=== PATIENT | female | born 1955 | race Caucasian/White ===

== ENCOUNTER 2018-12-14 21:47 | Emergency (ER) | payer SELFPAY ==
[~2018-12-14] VITALS: Ht 162.6 cm; Wt 81.8 kg
[2018-12-15] MEDS ORDERED: LIDOCAINE 1% MDV 20ML VIAL IM ONE (00:15)
[2018-12-15] MEDS ORDERED: ADACEL/BOOSTRIX VACCINE (DIPHTH/PERTUSS/ACELL/TETANUS)0.5ML SYR (90715) IM ONE (00:15)
[2018-12-15] MEDS ORDERED: KEFL500C17 PO (01:26)
[2018-12-15] MEDS ORDERED: LIDOCAINE 1% SDV 5 ML VIAL DILUENT ONE (01:30)
[2018-12-15] MEDS ORDERED: cefTRIAXone SOD 1 GM VIAL (J0696) IM ONE (01:30)
[2018-12-15] MEDS ORDERED: CEPHALEXIN 500 MG CAP PO ONE (01:30)
[2018-12-15 01:49] VITALS: BP 170/98
[2018-12-15] MEDS ORDERED: TRAM50TA2 PO (01:54)
[2018-12-15] MEDS ORDERED: traMADol 50 MG TAB PO ONE (02:00)
--- NOTE | 2018-12-15 15:01 | REP ---
Clinical: Trauma. Dog bite. Technique: AP, lateral, bilateral oblique views right hand. Findings: Lateral view best demonstrates soft tissue swelling. The osseous structures and joint spaces are intact and normal. There is no evidence for acute fracture or dislocation. No subcutaneous emphysema or radiodense foreign body. Impression: Soft tissue swelling. No acute fracture or dislocation. No subcutaneous emphysema or radiodense foreign body. Electronically Signed by Brennan Harding MD 12/15/2018 07:18 A
[2018-12-16] MEDS ORDERED: CEPH500T PO (20:05)
[2018-12-16] MEDS ORDERED: TRAM50TA2 PO (20:05)
== END 2018-12-15 02:01 | disposition home or self-care (01) ==
LOC: M ED 21:47
DX: S61.411A Laceration without foreign body of right hand, initial encounter (principal); S61.431A Puncture wound without foreign body of right hand, initial encounter; W54.0XXA Bitten by dog, initial encounter; Y92.098 Other place in other non-institutional residence as the place of occurrence of the external cause; F17.200 Nicotine dependence, unspecified, uncomplicated
CPT/HCPCS: 12001; 73130; 90471; 90715; 96372; 99284; J0696

== ENCOUNTER 2018-12-16 16:52 | Inpatient (IN) | payer SELFPAY ==
[~2018-12-16] VITALS: Ht 162.6 cm; Wt 82.8 kg
[~2018-12-16 16:52] MED LIST: KEFL500C17 PO; TRAM50TA2 PO
[2018-12-16] MEDS ORDERED: PIPERACILLIN/TAZOBACTAM SOD 3.375 GM in D5W MINI-BAG PLUS 50 ML IV ONE (18:00)
[2018-12-16 18:04] LABS: BASO % 0.1 % (0.0-1.0); EOS # 0.1 10^3/uL (0.0-0.50); HEMATOCRIT 42.7 % (36.0-47.0); HEMOGLOBIN 14.2 g/dl (12.0-15.5); LYMPH % 19.8 % (24.0-44.0); MEAN CORPUSCULAR HEMOGLOBIN 31.4 pg (27.0-33.0); MEAN CORPUSCULAR HGB CONC 33.3 g/dl (32.0-36.5); MEAN CORPUSCULAR VOLUME 94.5 fl (80.0-96.0); MONO # 0.8 10^3/uL (0.0-0.8); NEUTROPHILS % 70.8 % (36.0-66.0); PLATELET COUNT, AUTOMATED 237 10^3/uL (150-450); RED BLOOD COUNT 4.52 10^6/uL (4.00-5.40); WHITE BLOOD COUNT 9.9 10^3/uL (4.0-10.0)
[2018-12-16 18:23] LABS: BLOOD UREA NITROGEN 9 MG/DL (7-18); C REACTIVE PROTEIN QUANTITATIV 9.59 MG/DL (0.00-0.30); CALCIUM LEVEL 8.9 MG/DL (8.8-10.2); CARBON DIOXIDE LEVEL 28 MEQ/L (21-32); CHLORIDE LEVEL 107 MEQ/L (98-107); CREATININE FOR GFR 0.68 MG/DL (0.55-1.30); GLOMERULAR FILTRATION RATE > 60.0 (>45); GLUCOSE, FASTING 99 MG/DL (70-100); POTASSIUM SERUM 3.9 MEQ/L (3.5-5.1); SODIUM LEVEL 143 MEQ/L (136-145)
[2018-12-16] MEDS ORDERED: MORPHINE 4 MG/ML 1ML VIAL/SYRINGE (J2270) IV ONE (19:30)
[2018-12-16 19:58] LABS: ERYTHROCYTE SEDIMENTATION RATE 52 mm/hr (0-30)
[2018-12-16] MEDS ORDERED: CEPH500T PO (20:05)
[2018-12-16] MEDS ORDERED: TRAM50TA2 PO (20:05)
[2018-12-16] MEDS ORDERED: MORPHINE 4 MG/ML 1ML VIAL/SYRINGE (J2270) IV PRN (20:45)
[2018-12-16] MEDS ORDERED: PERCOCET 5MG/325MG TAB PO PRN ×2 (20:45)
[2018-12-16] MEDS: ENOXAPARIN 40 MG/0.4 ML SYRINGE (J1650) SC SCH ×2 (21:00→22:55)
--- NOTE | 2018-12-16 21:19 | HPEPDOC ---
[facility] Medical History & Physical Date of Admission Dec 16, 2018 Date of Service: Dec 16, 2018 History and Physical PCP: None, secondary to a lack of insurance in general good health CHIEF COMPLAINT: Dogbite HISTORY OF PRESENT ILLNESS: Patient is a 63-year-old female who is right-hand dominant who did have a dog bite on her right hand. She knows that the dog had received all of its shots, she was seen in the emergency room at that time she was discharged home on Keflex as well as received a tetanus shot and an x-ray as well as sutures placed. Over the last 48 hours the swelling pain and discharge worsened prompting her to re-presented to the emergency room today. She denies fevers chills otherwise patient denies weight loss, hair loss, headache, visual changes, chest pain, shortness of breath, cough, nausea, vomiting, diarrhea, abdominal pain, muscle aches, worsening arthritis, change in mood PAST MEDICAL HISTORY: 1. Nicotine dependence. HOME MEDICATIONS: Please see below. ALLERGIES: Please see below PAST SURGICAL HISTORY: 1. . 2. Carpal tunnel release. 3. Tubal ligation. SOCIAL HISTORY: Lives with: Alone, Employment: [employer], Tobacco use: 40 pack year active smoker. ETOH: 2-3 drinks per day, Illicit drug use: Denies, Tattoos done unprofessionally: Denies, CODE STATUS: Fall code FAMILY HISTORY:Reviewed and noncontributory REVIEW OF SYSTEMS: 10 systems reviewed and negative other than HPI PHYSICAL EXAMINATION: VITAL SIGNS: Temperature 97.7, pulse 105, respiratory rate 16, blood pressure 201/88, pulse oximetry 95 % on room air. GENERAL: Pleasant elderly femalesitting up in bed awake alert oriented speaking in complete sentences no acute distress HEENT: Moist mucous membranes no elevation and CVP CARDIOVASCULAR: S1 S2 regular no additional heart sounds appreciated. She is not tachycardic at the time of my exam RESPIRATORY: Clear to auscultation bilaterally. ABDOMINAL: Bowel sounds present abdomen soft and nontender, mildly obese EXTREMITIES: No clubbing cyanosis or edema in lower extremities. Right upper extremity does appear to have grossly erythematous edematous tender swelling of the right lateral aspect of the hand at the dorsum. She has sutures in place serous discharge is noted significant decrease range of motion in the second and third digit NEUROLOGICAL: Spontaneously moves all 4 extremities cranial 2 through 12 grossly intact no gross focal deficits appreciated PSYCHOLOGICAL: Appropriate LABORATORY DATA: See below. MICROBIOLOGY: Please see below. IMAGING: Hand x-ray from 12/15/2018:Soft tissue swelling. No acute fracture or dislocation. No subcutaneous emphysema or radiodense foreign body. ASSESSMENT & PLAN: This is a 63-year-old female with cellulitis of the right hand secondary to a dog bite. PROBLEMS: 1. Cellulitis of the right hand secondary to a dog bite: Given the impressive nature of her injury and infection I've asked emergency room her primary provider to discontinue her sutures allow for adequate drainage from the wound. I spoke to Dr. Olivas of orthopedic surgery who is present at bedside to evaluate the wound is recommended not checking an MRI of the hand at this time to see if she improves with antibiotics consider completing as tomorrow morning if she fails to have increased range of motion of improvement in her symptoms. I'll continue her on Zosyn and comes time for potential discharge would recommend A ugmentin or doxycycline and would avoid Keflex. Multivitamin with pain control orthopedic surgical follow-up outpatient consultation 2. Tobacco abuse: Cessation counseling provided 3. Alcohol use: No evidence of significant abuse monitor for any withdrawal symptoms 4.Medical nonadherence: No PCP, patient lacks insurance. Thus consult placed DVT PROPHYLAXIS: [facility] Vital Signs Vital Signs Date Time Temp Pulse Resp B/P (MAP) Pulse Ox O2 Delivery O2 Flow Rate FiO2 12/16/18 19:54 16 12/16/18 19:53 182/88 (119) 12/16/18 19:31 83 95 Room Air 12/16/18 16:52 97.7 Laboratory Data Labs 24H Laboratory Tests 2 12/16/18 17:44: Immature Granulocyte % (Auto) 0.3, White Blood Count 9.9, Red Blood Count 4.52, Hemoglobin 14.2, Hematocrit 42.7, Mean Corpuscular Volume 94.5, Mean Corpuscular Hemoglobin 31.4, Mean Corpuscular Hemoglobin Concent 33.3, Red Cell Distribution Width 13.7, Platelet Count 237, Neutrophils (%) (Auto) 70.8H, Lymphocytes (%) (Auto) 19.8L, Monocytes (%) (Auto) 8.0H, Eosinophils (%) (Auto) 1.0, Basophils (%) (Auto) 0.1, Neutrophils # (Auto) 7.0, Lymphocytes # (Auto) 2.0, Monocytes # (Auto) 0.8, Eosinophils # (Auto) 0.1, Basophils # (Auto) 0.0, Nucleated Red Blood Cells % (auto) 0.0, Erythrocyte Sedimentation Rate 52H, Anion Gap 8, Glomerular Filtration Rate > 60.0, Lactic Acid Level 0.8, Blood Urea Nitrogen 9, Creatinine 0.68, Sodium Level 143, Potassium Level 3.9, Chloride Level 107, Carbon Dioxide Level 28, Calcium Level 8.9, C-Reactive Protein, Quantitative 9.59H CBC/BMP Laboratory Tests 12/16/18 17:44 Red Blood Count 4.52, Mean Corpuscular Volume 94.5, Mean Corpuscular Hemoglobin 31.4, Mean Corpuscular Hemoglobin Concent 33.3, Red Cell Distribution Width 13.7, Neutrophils (%) (Auto) 70.8 H, Lymphocytes (%) (Auto) 19.8 L, Monocytes (%) (Auto) 8.0 H, Eosinophils (%) (Auto) 1.0, Basophils (%) (Auto) 0.1, Neutrophils # (Auto) 7.0, Lymphocytes # (Auto) 2.0, Monocytes # (Auto) 0.8, Eosinophils # (Auto) 0.1, Basophils # (Auto) 0.0, Calcium Level 8.9 Microbiology Microbiology 12/16/18 Blood Culture, Received Pending 12/16/18 Blood Culture, Received Pending 12/16/18 Gram Stain, Received Pending 12/16/18 Wound Culture, Received Pending Home Medications Scheduled Cephalexin (Cephalexin) 500 Mg Tablet, 500 MG PO Q12H Scheduled PRN Tramadol HCl (Tramadol HCl) 50 Mg Tablet, 50 MG PO Q6HP PRN for pain Allergies Coded Allergies: No Known Allergies (Unverified , 12/14/18) A-FIB/CHADSVASC A-FIB History Current/History of A-Fib/PAF?: No DANIEL HICKMAN MD Dec 16, 2018 21:19
[2018-12-16] MEDS: PIPERACILLIN/TAZOBACTAM SOD 3.375 GM in D5W MINI-BAG PLUS 50 ML IV SCH (23:35)
[2018-12-16 23:59] VITALS: BP 186/79
[2018-12-17] MEDS: PIPERACILLIN/TAZOBACTAM SOD 3.375 GM in D5W MINI-BAG PLUS 50 ML IV SCH ×3 (05:53→17:20)
[2018-12-17 05:57] LABS: MEAN CORPUSCULAR HEMOGLOBIN 30.7 pg (27.0-33.0); MEAN CORPUSCULAR HGB CONC 32.5 g/dl (32.0-36.5); MEAN CORPUSCULAR VOLUME 94.6 fl (80.0-96.0); PLATELET COUNT, AUTOMATED 229 10^3/uL (150-450); RED BLOOD COUNT 4.23 10^6/uL (4.00-5.40); WHITE BLOOD COUNT 8.7 10^3/uL (4.0-10.0)
[2018-12-17 06:23] LABS: BLOOD UREA NITROGEN 7 MG/DL (7-18); CALCIUM LEVEL 8.9 MG/DL (8.8-10.2); CARBON DIOXIDE LEVEL 27 MEQ/L (21-32); CHLORIDE LEVEL 109 MEQ/L (98-107); GLOMERULAR FILTRATION RATE > 60.0 (>45); GLUCOSE, FASTING 103 MG/DL (70-100); POTASSIUM SERUM 3.7 MEQ/L (3.5-5.1); SODIUM LEVEL 141 MEQ/L (136-145)
[2018-12-17 08:00] VITALS: BP 160/66
[2018-12-17 15:00] VITALS: BP 143/68
--- NOTE | 2018-12-17 16:25 | IPNPDOC ---
Subjective Date Seen The patient was seen on 12/17/18. Subjective Chief Complaint/HPI 63f with no medical hx present with infected wound from dog bite. pt reports hand is much improved since coming to the hospital a full 10 pt ROS was performed and was negative with the exception of what is documented above Objective Physical Examination General Exam: Positive: Alert, No Acute Distress Eye Exam: Positive: PERRLA, Conjunctiva & lids normal, EOMI; Negative: Sclera icteric ENT Exam: Positive: Atraumatic, Mucous membr. moist/pink, Pharynx Normal Neck Exam: Positive: Supple; Negative: JVD, thyromegaly Chest Exam: Positive: Clear to auscultation, Normal air movement Heart Exam: Positive: Rate Normal, Regular Rhythm, Normal S1, Normal S2; Negative: Murmurs, Rubs Abdomen Exam: Positive: Normal bowel sounds, Soft; Negative: Tenderness, Hepatospenomegaly Extremity Exam: Positive: Normal pulses; Negative: Clubbing, Cyanosis, Edema Skin Exam: Positive: Nl turgor and temperature; Negative: Rash, Breakdown Neuro Exam: Positive: Normal Gait, Normal Speech, Cranial Nerves 3-12 NL, Reflexes 2+ Psych Exam: Positive: Mental status NL, Mood NL, Oriented x 3 Other physical findings rt hand with wound from dog bite and surrounding cellulitis Assessment /Plan Assessment 63f with infected dog bite continue zosyn infection rapidly improving will consider switching to augmentin or FQ soon dc anticipated in next day or two continue pain control Plan/VTE VTE Prophylaxis Ordered?: Yes VS, I&O, 24H, Fishbone Vital Signs/I&O Vital Signs Date Time Temp Pulse Resp B/P (MAP) Pulse Ox O2 Delivery O2 Flow Rate FiO2 12/17/18 15:00 98.3 87 16 143/68 (93) 93 12/16/18 19:31 Room Air I&O- Last 24 Hours up to 6 AM 12/17/18 06:00 Intake Total 50 ml Balance 50 ml Laboratory Data 24H LABS Laboratory Tests 2 12/16/18 17:44: Immature Granulocyte % (Auto) 0.3, White Blood Count 9.9, Red Blood Count 4.52, Hemoglobin 14.2, Hematocrit 42.7, Mean Corpuscular Volume 94.5, Mean Corpuscular Hemoglobin 31.4, Mean Corpuscular Hemoglobin Concent 33.3, Red Cell Distribution Width 13.7, Platelet Count 237, Neutrophils (%) (Auto) 70.8H, Lymphocytes (%) (Auto) 19.8L, Monocytes (%) (Auto) 8.0H, Eosinophils (%) (Auto) 1.0, Basophils (%) (Auto) 0.1, Neutrophils # (Auto) 7.0, Lymphocytes # (Auto) 2.0, Monocytes # (Auto) 0.8, Eosinophils # (Auto) 0.1, Basophils # (Auto) 0.0, Nucleated Red Blood Cells % (auto) 0.0, Erythrocyte Sedimentation Rate 52H, Anion Gap 8, Glomerular Filtration Rate > 60.0, Lactic Acid Level 0.8, Blood Urea Nitrogen 9, Creatinine 0.68, Sodium Level 143, Potassium Level 3.9, Chloride Level 107, Carbon Dioxide Level 28, Calcium Level 8.9, C-Reactive Protein, Quantitative 9.59H 12/17/18 05:12: Nucleated Red Blood Cells % (auto) 0.0, Anion Gap 5L, Glomerular Filtration Rate > 60.0, Blood Urea Nitrogen 7, Creatinine 0.80, Sodium Level 141, Potassium Level 3.7, Chloride Level 109H, Carbon Dioxide Level 27, Calcium Level 8.9, Procalcitonin 0.04 CBC/BMP Laboratory Tests 12/16/18 17:44 Red Blood Count 4.52, Mean Corpuscular Volume 94.5, Mean Corpuscular Hemoglobin 31.4, Mean Corpuscular Hemoglobin Concent 33.3, Red Cell Distribution Width 13.7, Neutrophils (%) (Auto) 70.8 H, Lymphocytes (%) (Auto) 19.8 L, Monocytes (%) (Auto) 8.0 H, Eosinophils (%) (Auto) 1.0, Basophils (%) (Auto) 0.1, Neutrophils # (Auto) 7.0, Lymphocytes # (Auto) 2.0, Monocytes # (Auto) 0.8, Eosinophils # (Auto) 0.1, Basophils # (Auto) 0.0, Calcium Level 8.9 12/17/18 05:12 Red Blood Count 4.23, Mean Corpuscular Volume 94.6, Mean Corpuscular Hemoglobin 30.7, Mean Corpuscular Hemoglobin Concent 32.5, Red Cell Distribution Width 13.7, Calcium Level 8.9 Microbiology Microbiology 12/16/18 Blood Culture, Received Pending 12/16/18 Blood Culture, Received Pending 12/16/18 Gram Stain - Final, Resulted 12/16/18 Wound Culture, Resulted Pending HEVER BATISTA MD Dec 17, 2018 16:25
[2018-12-17] MEDS: ENOXAPARIN 40 MG/0.4 ML SYRINGE (J1650) SC SCH (20:00)
[2018-12-17 21:36] VITALS: BP 171/80
[2018-12-17 22:00] VITALS: BP 168/90
[2018-12-18] VITALS (7 sets, daily range): BP systolic 162–204; BP diastolic 81–102
[2018-12-18] MEDS: PIPERACILLIN/TAZOBACTAM SOD 3.375 GM in D5W MINI-BAG PLUS 50 ML IV SCH ×5 (00:10→23:53)
[2018-12-18 06:06] LABS: HEMATOCRIT 40.5 % (36.0-47.0); HEMOGLOBIN 13.2 g/dl (12.0-15.5); MEAN CORPUSCULAR HEMOGLOBIN 31.1 pg (27.0-33.0); MEAN CORPUSCULAR HGB CONC 32.6 g/dl (32.0-36.5); MEAN CORPUSCULAR VOLUME 95.5 fl (80.0-96.0); PLATELET COUNT, AUTOMATED 218 10^3/uL (150-450); RED BLOOD COUNT 4.24 10^6/uL (4.00-5.40); WHITE BLOOD COUNT 7.2 10^3/uL (4.0-10.0)
[2018-12-18 06:30] LABS: BLOOD UREA NITROGEN 10 MG/DL (7-18); CALCIUM LEVEL 8.5 MG/DL (8.8-10.2); CARBON DIOXIDE LEVEL 26 MEQ/L (21-32); CHLORIDE LEVEL 109 MEQ/L (98-107); CREATININE FOR GFR 0.74 MG/DL (0.55-1.30); GLOMERULAR FILTRATION RATE > 60.0 (>45); GLUCOSE, FASTING 112 MG/DL (70-100); POTASSIUM SERUM 3.8 MEQ/L (3.5-5.1); SODIUM LEVEL 143 MEQ/L (136-145)
--- NOTE | 2018-12-18 17:06 | IPNPDOC ---
Subjective Date Seen The patient was seen on 12/18/18. Subjective Chief Complaint/HPI 63f with no medical hx present with infected wound from dog bite. has nearly full range of motion back, some drainage from wounds, no fevers a full 10 pt ROS was performed and was negative with the exception of what is documented above Objective Physical Examination General Exam: Positive: Alert, No Acute Distress Eye Exam: Positive: PERRLA, Conjunctiva & lids normal, EOMI; Negative: Sclera icteric ENT Exam: Positive: Atraumatic, Mucous membr. moist/pink, Pharynx Normal Neck Exam: Positive: Supple; Negative: JVD, thyromegaly Chest Exam: Positive: Clear to auscultation, Normal air movement Heart Exam: Positive: Rate Normal, Regular Rhythm, Normal S1, Normal S2; Negative: Murmurs, Rubs Abdomen Exam: Positive: Normal bowel sounds, Soft; Negative: Tenderness, Hepatospenomegaly Extremity Exam: Positive: Normal pulses; Negative: Clubbing, Cyanosis, Edema Skin Exam: Positive: Nl turgor and temperature; Negative: Rash, Breakdown Neuro Exam: Positive: Normal Gait, Normal Speech, Cranial Nerves 3-12 NL, Reflexes 2+ Psych Exam: Positive: Mental status NL, Mood NL, Oriented x 3 Assessment /Plan Assessment 63f with infected dog bite continue zosyn improving however I'm concerned that it is not draining enough and looking more swollen ortho following observe one more day then if improving would dc on augmentin continue pain control Plan/VTE VTE Prophylaxis Ordered?: Yes VS, I&O, 24H, Fishbone Vital Signs/I&O Vital Signs Date Time Temp Pulse Resp B/P (MAP) Pulse Ox O2 Delivery O2 Flow Rate FiO2 12/18/18 14:08 162/84 (110) 12/18/18 13:58 97.5 74 95 12/18/18 05:57 14 12/16/18 19:31 Room Air I&O- Last 24 Hours up to 6 AM 12/18/18 06:00 Intake Total 2100 ml Output Total 2200 ml Balance -100 ml Laboratory Data 24H LABS Laboratory Tests 2 12/18/18 05:21: Nucleated Red Blood Cells % (auto) 0.0, Anion Gap 8, Glomerular Filtration Rate > 60.0, Blood Urea Nitrogen 10, Creatinine 0.74, Sodium Level 143, Potassium Level 3.8, Chloride Level 109H, Carbon Dioxide Level 26, Calcium Level 8.5L CBC/BMP Laboratory Tests 12/18/18 05:21 Red Blood Count 4.24, Mean Corpuscular Volume 95.5, Mean Corpuscular Hemoglobin 31.1, Mean Corpuscular Hemoglobin Concent 32.6, Red Cell Distribution Width 13.5, Calcium Level 8.5 L Microbiology Microbiology 12/16/18 Blood Culture - Preliminary, Resulted No growth after 24 hours . All specim... 12/16/18 Blood Culture - Preliminary, Resulted No growth after 24 hours . All specim... 12/16/18 Gram Stain - Final, Complete 12/16/18 Wound Culture - Final, Complete HEVER BATISTA MD Dec 18, 2018 17:06
--- NOTE | 2018-12-18 18:03 | CR ---
DATE OF CONSULTATION: 12/16/2018 I was asked by Dr. Newsome to evaluate dog bite, right upper extremity. CHIEF COMPLAINT: Dog bite, right upper extremity. HISTORY: She was bitten by her own dog. Injury happened several days prior, was washed out in the emergency room (ER) by a physician sales assistant institutional sales, placed on Keflex, sent home comes, back in two days later with increasing pain, swelling and serous drainage from the dorsum of the right upper extremity. Her health records were reviewed and medical record and chart were reviewed. CLINICAL EXAM: Alert, cooperative. Mood and affect are appropriate. RIGHT UPPER EXTREMITY: Mild erythema, moderate edema. Pain with flexion and extension of the digits. Swelling, exclusively on dorsum of the hand. No streaking up the arm. IMPRESSION: Status post dog bite two days ago. RECOMMENDATIONS: 1. Admit. 2. Dressing changes. 3. Intravenous antibiotics, broad-spectrum that would be appropriate to cover an infected bite wound. 4. Potential further evaluation with an MRI if she does not rapidly improved on the appropriate antibiotics. 5. Consideration for infectious disease consult also appropriate.
[2018-12-18] MEDS: ENOXAPARIN 40 MG/0.4 ML SYRINGE (J1650) SC SCH (21:34)
[2018-12-18] MEDS ORDERED: NITROGLYCERIN 2% OINT 1 GM *U/D* PKT TOP ONE (23:30)
[2018-12-18] MEDS: LISINOPRIL 5 MG TAB PO SCH (23:52)
[2018-12-19] MEDS ORDERED: NITROGLYCERIN 2% OINT 1 GM *U/D* PKT TOP ONE (00:15)
[2018-12-19 01:44] VITALS: BP 186/94
[2018-12-19] MEDS ORDERED: cloNIDine 0.1 MG TAB PO ONE (02:30)
[2018-12-19 04:50] VITALS: BP 158/74
[2018-12-19 05:40] VITALS: BP 140/76
[2018-12-19] MEDS: PIPERACILLIN/TAZOBACTAM SOD 3.375 GM in D5W MINI-BAG PLUS 50 ML IV SCH ×2 (05:42→12:00)
[2018-12-19 05:47] LABS: HEMATOCRIT 35.9 % (36.0-47.0); HEMOGLOBIN 11.8 g/dl (12.0-15.5); MEAN CORPUSCULAR HEMOGLOBIN 30.2 pg (27.0-33.0); MEAN CORPUSCULAR HGB CONC 32.9 g/dl (32.0-36.5); MEAN CORPUSCULAR VOLUME 91.8 fl (80.0-96.0); PLATELET COUNT, AUTOMATED 236 10^3/uL (150-450); RED BLOOD COUNT 3.91 10^6/uL (4.00-5.40)
[2018-12-19 07:13] LABS: BLOOD UREA NITROGEN 8 MG/DL (7-18); C REACTIVE PROTEIN QUANTITATIV 2.15 MG/DL (0.00-0.30); CALCIUM LEVEL 8.4 MG/DL (8.8-10.2); CARBON DIOXIDE LEVEL 26 MEQ/L (21-32); CHLORIDE LEVEL 111 MEQ/L (98-107); CREATININE FOR GFR 0.78 MG/DL (0.55-1.30); GLOMERULAR FILTRATION RATE > 60.0 (>45); GLUCOSE, FASTING 112 MG/DL (70-100); POTASSIUM SERUM 3.5 MEQ/L (3.5-5.1); SODIUM LEVEL 144 MEQ/L (136-145)
[2018-12-19 08:57] VITALS: BP 142/78
[2018-12-19] MEDS: LISINOPRIL 5 MG TAB PO SCH (08:57)
[2018-12-19] MEDS ORDERED: AUGM875T28 PO (10:27)
[2018-12-19] MEDS ORDERED: LISI10TA4 PO (10:28)
[2018-12-19] MEDS ORDERED: ACET1TAB55 PO (10:31)
--- NOTE | 2018-12-21 22:19 | DS.PDOC ---
Discharge Summary General Date of Admission Dec 16, 2018 at 20:36 Date of Discharge December 19, 2018 Attending Physician: SHARAD DUMAS MD Specialist/Consultants Involve: Ruslan Olivas MD Discharge Summary PROCEDURES PERFORMED DURING STAY: [None]. ADMITTING DIAGNOSES: 1. Infected dog bite 2. Cellulitis of RUE DISCHARGE DIAGNOSES: 1.As Above COMPLICATIONS/CHIEF COMPLAINT: Cellulitis Of Right Upper Extremity. HISTORY OF PRESENT ILLNESS (As per H&P): Patient is a 63-year-old female who is right-hand dominant who did have a dog bite on her right hand. She knows that the dog had received all of its shots, she was seen in the emergency room at that time she was discharged home on Keflex as well as received a tetanus shot and an x-ray as well as sutures placed. Over the last 48 hours the swelling pain and discharge worsened prompting her to re-presented to the emergency room today. She denies fevers chills otherwise patient denies weight loss, hair loss, headache, visual changes, chest pain, shortness of breath, cough, nausea, vomiting, diarrhea, abdominal pain, muscle aches, worsening arthritis, change in mood HOSPITAL COURSE: Pt was placed on IV Abx ( zosyn), Ortho was consulted, Pt clinically improved, had nearly full range of motion . Abx was switched to PO Augmentin. Was DC home. DISCHARGE MEDICATIONS: Please see below. ALLERGIES: Please see below. PHYSICAL EXAMINATION ON DISCHARGE: VITAL SIGNS: Please see below. General Exam: Positive: Alert, No Acute Distress Eye Exam: Positive: PERRLA, Conjunctiva & lids normal, EOMI; Negative: Sclera icteric ENT Exam: Positive: Atraumatic, Mucous membr. moist/pink, Pharynx Normal Neck Exam: Positive: Supple; Negative: JVD, thyromegaly Chest Exam: Positive: Clear to auscultation, Normal air movement Heart Exam: Positive: Rate Normal, Regular Rhythm, Normal S1, Normal S2; Negative: Murmurs, Rubs Abdomen Exam: Positive: Normal bowel sounds, Soft; Negative: Tenderness, Hepatospenomegaly Extremity Exam: Positive: Normal pulses; Negative: Clubbing, Cyanosis, Edema Skin Exam: Positive: Nl turgor and temperature; Negative: Rash, Breakdown Neuro Exam: Positive: Normal Gait, Normal Speech, Cranial Nerves 3-12 NL, Reflexes 2+ Psych Exam: Positive: Mental status NL, Mood NL, Oriented x 3 LABORATORY DATA: Please see below. IMAGING: Right Hand Xray: Impression: Soft tissue swelling. No acute fracture or dislocation. No subcutaneous emphysema or radiodense foreign body. PROGNOSIS:Good ACTIVITY: As tolerated. DIET: As tolerated DISCHARGE PLAN: Cont. Abx DISPOSITION: Home, Self-Care. DISCHARGE INSTRUCTIONS: 1. Hand Hygiene ITEMS TO FOLLOWUP ON ON OUTPATIENT: 1. Follow with PCP 2. Return to ED with any warninhg sign. DISCHARGE CONDITION: Stable, afebrile, improved with ABx. TIME SPENT ON DISCHARGE: Greater than 20 minutes. Vital Signs/I&Os Vital Signs Date Time Temp Pulse Resp B/P (MAP) Pulse Ox O2 Delivery O2 Flow Rate FiO2 12/19/18 08:57 142/78 12/19/18 05:40 97.9 67 12 91 12/16/18 19:31 Room Air Laboratory Data Labs 24H Orders Provider Order Sheet (12/20/18 13:08) Microbiology Microbiology 12/16/18 Blood Culture - Final, Complete NO GROWTH AFTER 5 DAYS 12/16/18 Blood Culture - Final, Complete NO GROWTH AFTER 5 DAYS 12/16/18 Gram Stain - Final, Complete 12/16/18 Wound Culture - Final, Complete Discharge Medications Scheduled Amoxicillin/Potassium Clav (Augmentin 875-125 Tablet) 1 Each Tablet, 1 TAB PO BID Lisinopril (Lisinopril) 10 Mg Tablet, 10 MG PO DAILY Scheduled PRN Acetaminophen (Acetaminophen) 325 Mg Tablet, 325 MG PO Q4-6HP PRN for pain or fever Allergies Coded Allergies: No Known Allergies (Unverified , 12/14/18) SHARAD DUMAS MD Dec 21, 2018 21:58
== END 2018-12-19 12:45 | disposition home or self-care (01) | DRG 384 ==
LOC: M ED 16:52 → M ED INP 20:36 → M PCU 23:02 → M MS5PR 12-17 14:27
PROVIDERS: ADMIT Internal Medicine; ATTEND Hospitalist
DX: S61.451A Open bite of right hand, initial encounter (principal); L03.113 Cellulitis of right upper limb; F17.200 Nicotine dependence, unspecified, uncomplicated; W54.0XXA Bitten by dog, initial encounter; Y92.89 Other specified places as the place of occurrence of the external cause

== ENCOUNTER → 2018-12-25 | Outpatient (REF) | payer OTHER ==
[~2018-12-25] MED LIST changes: +ACET1TAB55 PO; +AUGM875T28 PO; +CEPH500T PO; +LISI10TA4 PO
[2018-12-25 15:59] LABS: APPEARANCE, URINE CLEAR (CLEAR); BACTERIA, URINE AUTO NEGATIVE (NEGATIVE); BILIRUBIN, URINE AUTO NEGATIVE (NEGATIVE); BLOOD, URINE BLOOD 1+ (NEGATIVE); COLOR, URINE STRAW (YELLOW); GLUCOSE, URINE (UA) AUTO NEGATIVE (NEGATIVE); KETONE, URINE AUTO NEGATIVE (NEGATIVE); LEUKOCYTE ESTERASE, URINE AUTO TRACE (NEGATIVE); NITRITE, URINE AUTO NEGATIVE (NEGATIVE); PROTEIN, URINE AUTO NEGATIVE (NEGATIVE); RBC, URINE AUTO 5 /HPF (0-3); SPECIFIC GRAVITY URINE AUTO 1.003 (1.002-1.035); SQUAMOUS EPITHELIAL CELL UR AU 1 /HPF (0-6); UROBILINOGEN, URINE AUTO 0.2 mg/dL (0.0-2.0); WBC, URINE AUTO 5 /HPF (0-3)
== END ==
LOC: M SFHCPLAZ 14:00
PROVIDERS: ATTEND Family Medicine
DX: I10 Essential (primary) hypertension (principal)

== ENCOUNTER → 2019-01-23 | Outpatient (REF) | payer OTHER, SELFPAY ==
[2019-01-23 12:53] LABS: APPEARANCE, URINE CLEAR (CLEAR); BACTERIA, URINE AUTO 1+ (NEGATIVE); BILIRUBIN, URINE AUTO NEGATIVE (NEGATIVE); BLOOD, URINE BLOOD 1+ (NEGATIVE); COLOR, URINE STRAW (YELLOW); GLUCOSE, URINE (UA) AUTO NEGATIVE (NEGATIVE); KETONE, URINE AUTO NEGATIVE (NEGATIVE); LEUKOCYTE ESTERASE, URINE AUTO TRACE (NEGATIVE); NITRITE, URINE AUTO NEGATIVE (NEGATIVE); PROTEIN, URINE AUTO NEGATIVE (NEGATIVE); RBC, URINE AUTO 2 /HPF (0-3); SPECIFIC GRAVITY URINE AUTO 1.003 (1.002-1.035); SQUAMOUS EPITHELIAL CELL UR AU 3 /HPF (0-6); UROBILINOGEN, URINE AUTO 0.2 mg/dL (0.0-2.0); WBC, URINE AUTO 8 /HPF (0-3)
[2019-01-23 12:59] LABS: BLOOD UREA NITROGEN 7 MG/DL (7-18); CALCIUM LEVEL 9.4 MG/DL (8.8-10.2); CARBON DIOXIDE LEVEL 29 MEQ/L (21-32); CHLORIDE LEVEL 108 MEQ/L (98-107); CHOLESTEROL LEVEL 215 MG/DL (<200); CREATININE FOR GFR 0.77 MG/DL (0.55-1.30); GLOMERULAR FILTRATION RATE > 60.0 (>45); GLUCOSE, FASTING 95 MG/DL (70-100); HDL CHOLESTEROL 37 MG/DL (>40); LDL CHOLESTEROL 134 MG/DL (<100); NON-HDL-C 178 MG/DL; POTASSIUM SERUM 4.4 MEQ/L (3.5-5.1); SODIUM LEVEL 143 MEQ/L (136-145); TRIGLYCERIDES LEVEL 222 MG/DL (<150)
[2019-01-23 13:32] LABS: HEMOGLOBIN A1c 6.2 %
== END ==
LOC: M SFHCPLAZ 09:14
PROVIDERS: ATTEND Family Medicine
DX: Z13.1 Encounter for screening for diabetes mellitus (principal); Z13.220 Encounter for screening for lipoid disorders; I10 Essential (primary) hypertension

== ENCOUNTER → 2019-06-24 | Outpatient (REF) | payer BC ==
[2019-06-24 12:58] LABS: HEMOGLOBIN A1c 6.1 %
== END ==
LOC: M SFHCPLAZ 10:39
PROVIDERS: ATTEND Internal Medicine
DX: R73.03 Prediabetes (principal)

== ENCOUNTER → 2019-07-02 | Outpatient (CLI) | payer BC ==
--- NOTE | 2019-07-03 05:29 | REP ---
Clinical: Amaurosis fugax . Technique: Melo scale and color Doppler evaluation using linear high frequency transducer Findings: Two-dimensional melo scale and color images demonstrate focal noncalcified atheromatous plaquing in the bilateral internal carotid arteries (right greater than left). Otherwise normal bilateral arterial lumen with laminar flow and no appreciable narrowing. Color Doppler interrogation demonstrates normal arterial wave patterns and velocities with no significant spectral broadening. Normal flow direction is appreciated in the bilateral vertebral arteries. RIGHT (cm/s) LEFT (cm/s) ICA peak systolic velocity 415 212 ICA diastolic velocity 151 47 ECA peak systolic velocity 116 136 CCA peak systolic velocity 90 104 ICA/CCA ratio 4.6 2.0 Impression: Small focal areas of non calcified plaquing with narrowing in the right internal carotid artery measuring in the greater than 70% range and the left internal carotid artery measuring at the 50-69% range. Electronically Signed by Brennan Harding MD 07/03/2019 05:22 A
== END ==
LOC: M RAD 11:33
PROVIDERS: ATTEND Student in an Organized Health Care Education/Training Program
DX: G45.3 Amaurosis fugax (principal)

== ENCOUNTER → 2020-04-30 | Outpatient (CLI) | payer BC ==
--- NOTE | 2020-04-30 10:38 | REP ---
INDICATION: OCCLUSION AND STENOSIS OF BILATERAL CAROTID ARTERIES COMPARISON: 07/02/2019 TECHNIQUE: Real-time ultrasound evaluation and duplex Doppler interrogation of the extracranial carotid vasculature is performed. FINDINGS: There is minimal of intimal thickening and plaque in the common carotid artery on the right. There is mixed plaque at the bulb and the proximal ICA with circumferential plaque present. There is some soft plaque scattered in the common carotid artery well small amounts of this plaque is in the bulb and there is mixed plaque in the proximal ICA. The vertebral arteries demonstrate normal direction of flow. RIGHT LEFT Peak systolic velocity ICA 370.6 cm/s 177 cm/s End diastolic velocity ICA 125 cm/s 33.5 cm/s Peak systolic velocity CCA 87.4 cm/s 89.4cm/s Peak systolic velocity ECA 143 cm/s 148.1 cm/s ICA/CCA ratio 4.24 1.98 IMPRESSION: Bilateral luminal narrowing of the internal carotid arteries right greater than left. There is plaque bilaterally but more on the right. Finding appears similar to the previous study with stenosis greater than 70% on the right and in the 50-69% range on the left.. This represents hemodynamically significant stenosis on both sides but more severe on the right. The appearance and velocities are grossly stable. Cranial direction of flow in both vertebral arteries.. <Electronically signed by Ulises Abraham > 04/30/20 [id number]
== END ==
LOC: M RAD 09:10
PROVIDERS: ATTEND Surgery Vascular Surgery
DX: I65.23 Occlusion and stenosis of bilateral carotid arteries (principal)

== ENCOUNTER → 2020-06-15 | Outpatient (REF) | payer BC ==
[2020-06-15 13:25] LABS: BLOOD UREA NITROGEN 16 MG/DL (7-18); CALCIUM LEVEL 9.3 MG/DL (8.8-10.2); CARBON DIOXIDE LEVEL 30 MEQ/L (21-32); CHLORIDE LEVEL 106 MEQ/L (98-107); CREATININE FOR GFR 0.79 MG/DL (0.55-1.30); GLOMERULAR FILTRATION RATE > 60.0 (>45); GLUCOSE, FASTING 89 MG/DL (70-100); POTASSIUM SERUM 4.2 MEQ/L (3.5-5.1); SODIUM LEVEL 144 MEQ/L (136-145)
== END ==
LOC: M SFHCPLAZ 11:26
PROVIDERS: ATTEND Family Medicine
DX: I10 Essential (primary) hypertension (principal)

== ENCOUNTER → 2020-07-05 | Outpatient (CLI) | payer BC ==
[~2020-07-05] MED LIST changes: +ASPI81TA26 PO; +ATOR80TA59 PO; +CHLO25TA PO; +CLOP75TA2 PO; +METO1TAB32 PO; +SM G150T PO; +VASC1CAP2 PO; +VITMTA PO
== END ==
LOC: M LABSMTC 09:24
PROVIDERS: ATTEND Anesthesiology
DX: Z01.812 Encounter for preprocedural laboratory examination (principal); Z20.822 Contact with and (suspected) exposure to COVID-19

== ENCOUNTER 2020-07-10 06:10 | Inpatient (IN) | payer BC ==
--- NOTE | 2020-06-26 10:19 | HPEPDOC ---
[facility] Medical History & Physical Date of Admission Jul 10, 2020 Date of Service: Jul 10, 2020 History and Physical Vascular surgery. Dr. Jennings HISTORY OF PRESENT ILLNESS: The patient is a 64-year-old female with greater than 70% right ICA stenosis with recommendation to proceed with right carotid en darterectomy as per Dr. Jennings 07/10/20. The patient reports no episodes of TIA or CVA. No episodes of amaurosis. She has not had any blurred vision, diplopia, dysarthria, dysphagia. No episodes of unilateral weakness, numbness, or tingling in the upper or lower extremities. She continues to smoke. PAST MEDICAL HISTORY: Hypertension NIDDM Dyslipidemia Tobacco use PAST SURGICAL HISTORY: Bilateral carpal tunnel release 1996 1993 Tubal ligation 1995 SOCIAL HISTORY: Smoker, 1 pack per day for 40 years FAMILY HISTORY: Hypertension, CAD, diabetes ALLERGIES: Please see below. REVIEW OF SYSTEMS: As noted in HPI otherwise 10 point review of systems unremarkable. HOME MEDICATIONS: Please see below. PHYSICAL EXAMINATION: Const: Appears medically stable. No signs of apparent distress present. Head/Face: Normal on inspection. ENMT: Tympanic membranes: intact. External nose WNL. Neck: Supple, right carotid bruits present Resp: No wheezing. Clear to auscultation bilaterally. CV: Rate is regular. Rhythm is regular. Abdomen: Bowel sounds are positive. Abdomen is soft, nontender, and nondistended. Lymph: No palpable or visible regional lymphadenopathy. Musculo:Gait steady, distal pulses 2+ DP/PT Skin:No rashes or lesions Neuro:Alert and oriented x3, moves all extremities equally, no focal neurologic deficits noted. Psych: Pleasant and cooperative Service Date and Time: 04/30/2020 0937 Technologist: JESUS Exam Requested: Duplex,carotid (complete) Reason for Patient Visit: OCCLUSION AND STENOSIS OF BILATERAL CAROTID ARTERI Reason for Exam: OCCLUSION AND STENOSIS OF BILATERAL CAROTID ARTERIES INDICATION: OCCLUSION AND STENOSIS OF BILATERAL CAROTID ARTERIES COMPARISON: 07/02/2019 TECHNIQUE: Real-time ultrasound evaluation and duplex Doppler interrogation of the extracranial carotid vasculature is performed. FINDINGS: There is minimal of intimal thickening and plaque in the common carotid artery on the right. There is mixed plaque at the bulb and the proximal ICA with circumferential plaque present. There is some soft plaque scattered in the common carotid artery well small amounts of this plaque is in the bulb and there is mixed plaque in the proximal ICA. The vertebral arteries demonstrate normal direction of flow. RIGHT LEFT Peak systolic velocity ICA 370.6 cm/s 177 cm/s End diastolic velocity ICA 125 cm/s 33.5 cm/s Peak systolic velocity CCA 87.4 cm/s 89.4cm/s Peak systolic velocity ECA 143 cm/s 148.1 cm/s ICA/CCA ratio 4.24 1.98 IMPRESSION: Bilateral luminal narrowing of the internal carotid arteries right greater than left. There is plaque bilaterally but more on the right. Finding appears similar to the previous study with stenosis greater than 70% on the right and in the 50-69% range on the left.. This represents hemodynamically significant stenosis on both sides but more severe on the right. The appearance and velocities are grossly stable. Cranial direction of flow in both vertebral arteries.. <Electronically signed by Ulises Abraham > 04/30/20 1035 ASSESSMENT/PLAN: 1. Carotid stenosis. Right ICA stenosis greater than 70%. Plan to proceed with right carotid endarterectomy as per Dr. Jennings 07/10/19. Recent carotid ultrasound with PSV right 370.6, EDV 125, ICA/CCA ratio 4.24. The procedure, risks, benefits and alternatives have been reviewed with the patient as per Dr. Jennings. All questions answered. Informed consent is obtained and placed with the chart. Transfusion consent is obtained and placed with the chart. Medical clearance has been requested and will be placed with the chart. Cardiac clearance has been requested with stress study, this will be placed with the chart. NPO IV fluids as per anesthesia. Admission labs to include CBC, BMP, INR, PTT, type and screen. Ancef 2 g IV preoperatively. Continue aspirin and Plavix. The patient is instructed not to hold Plavix or aspirin for the procedure. Continue statin. 2. Tobacco use. The pt is strongly encouraged to quit smoking. Potential health hazards are discussed with the pt including the advancement of atherosclerotic disease . I have discussed that continuing to smoke is associated with progression of disease, greater risk of complications and poor response to therapy. Vital Signs Admission vital signs pending. Laboratory Data Labs 24H Admission labs pending. Home Medications Scheduled Aspirin (Aspirin EC) 81 Mg Tablet., 81 MG PO DAILY Atorvastatin Calcium (Atorvastatin Calcium) 80 Mg Tablet, 80 MG PO DAILY Chlorthalidone (Chlorthalidone) 25 Mg Tablet, 25 MG PO DAILY Clopidogrel Bisulfate (Clopidogrel) 75 Mg Tablet, 75 MG PO DAILY Garlic (Garlic) 1 Each Tablet, 1,000 MG PO DAILY Icosapent Ethyl (Vascepa) 1 Gm Capsule, 1 GM PO BID Lisinopril (Lisinopril) 10 Mg Tablet, 10 MG PO DAILY Metoprolol Succinate (Metoprolol Succinate) 25 Mg Tab.er.24h, 25 MG PO DAILY Scheduled PRN Acetaminophen (Acetaminophen) 325 Mg Tablet, 325 MG PO Q4-6HP PRN for pain or fever Miscellaneous Medications Multivitamins (Thera M Plus Tablet) 1 Each Tablet, 1 TAB PO Allergies Coded Allergies: adhesive (Verified Allergy, Intermediate, redness, swelling, 06/26/20) A-FIB/CHADSVASC A-FIB History Current/History of A-Fib/PAF?: No Briseida Danielle Jun 26, 2020 10:18
[~2020-07-10] VITALS: Ht 165.1 cm; Wt 79.0 kg
[2020-07-10] VITALS (36 sets, daily range): BP systolic 77–177; BP diastolic 37–78
[~2020-07-10 06:10] MED LIST changes: +LISI10TA22 PO; -LISI10TA4 PO; +LR 1,000 ML IV ONE; +ceFAZolin SOD 2 GM in IV 1 EA IV ONE
--- OUTSIDE RECORDS SUMMARY | 2020-07-10 06:18 | CCD ---
Author Author [facility] Organization [facility] Address Unknown Phone Unavailable Care Team Providers Care Director Of Direct Marketing Name Role Phone Errol Martinez Unavailable PROBLEMS Type Condition ICD9-CM Code [id number] Code Onset Dates Condition S tatus SNOMED Code Notes Problem Amaurosis fugax G45.3 Active 85022049 Problem Occlusion and stenosis of right carotid artery I65 .21 Active 510087030130635 Problem Hypertension, unspecified type I10 Active 3 7235428 Problem Tobacco use Z72.0 Active 286808508 Problem Mixed hyperlipidemia E78.2 Active 143563301 Problem Cigarette nicotine dependence with other nicotin e-induced disorder F17.218 Active [id number] ALLERGIES No Known Allergies ENCOUNTERS from 1955 to 2020-07-01 Encounter Location Date Provider Diagnosis [facility] [place] Resident [address] [place] [address] 13 Jun, 2020 Errol Martinez Hypertension, unspecified ty pe I10 ; Occlusion and stenosis of right carotid artery I65.21 and Preoperative evaluation for tubal ligation Z01.818 IMMUNIZATIONS Vaccine Route Administration Date Status Zoster 50mcg/0.5mL (Shingrix) IM Intramuscular Jan 23, 2019 A dministered Pneumococcal Adult 0.5mL (Pneumovax 23) IM Intramuscular Jan 23, 2019 Administered SOCIAL HISTORY Tobacco Use: Social History Observation Description Date Details (start date - stop date) Current Smoker Sex Assigned At : Social History Observation Description Sex Assigned At Unknown Education: Question Answer Notes Level of Education: Not Finished College Audit Question Answer Notes Total Score: 0 Interpretation: Alcohol Education Language: Question Answer Notes Languages spoken: Montserratian Sexual Hx: Question Answer Notes Had sex in the last 12 months (vaginal, oral, or anal)? No Have you ever had an STD? No Drug and Alcohol Question Answer Notes Total Score: 0 Interpretation: No problems reported Alcohol Screening: Question Answer Notes Did you have a drink containing alcohol in the past year? Ye s Points 1 Interpretation Negative How often did you have six or more drinks on one occas ion in the past year? Never (0 points) How many drinks did you have on a typica l day when you were drinking in the past year? 1 or 2 (0 points) How often did you have a drink containing alcohol in t he past year? Monthly or less (1 point) Tobacco Use: Question Answer Notes Are you a: current smoker Patient counseled on the dangers of tobacco use and urged to quit: 02/22/2019 How many cigarettes a day do you smoke? 21-30 Are you interested in quitting? Thinking about quitting Counseled the patient on smoking cessation, education provid ed 02/22/2019 REASON FOR REFERRAL No Information VITAL SIGNS Weight 167 lbs Jun, Height 64 in Jun, BMI 28.66 kg/m2 Jun, Heart Rate 90 /min Jun, Respiratory Rate 17 /min Jun, Temperature 97.2 degrees Fahrenheit Jun, Oximetry 99 Jun, Blood pressure systolic 148 mm Hg Jun, Blood pressure diastolic 74 mm Hg Jun, MEDICATIONS Medication SIG (Take, Route, Frequency, Duration) Notes Start Da te End Date Status Atorvastatin Calcium 80 MG 1 tablet Orally Once a day for 30 Active Vascepa 2 GM twice daily Active Plavix 75 MG 1 tablet Orally Once a day for 30 day(s) Active Lisinopril 40 MG 1 tablet Orally Once a day for 30 Active Aspirin 81 MG 1 tablet Orally Once a day for 30 day(s) Active Chlorthalidone 25 MG 1 tablet in the morning with food Orally Once a day for 30 day(s) May, Active Metoprolol Succinate 25 MG 1 capsule Orally Once a day for 30 day(s) Active PROCEDURES No Information RESULTS No Results REASON FOR VISIT 2 weeks follow up bp for pre-op MEDICAL (GENERAL) HISTORY Type Description Date Medical History hypertension goal of less than 140 systo lic Medical History Pre-Diabetes Medical History Mixed hyperlipidemia Medical History Tobacco Use Surgical History Surgical History tubaligation Surgical History carpal tunnel both hands Surgical History tendonitis Hospitalization History sufgery related Goals Section No Information Health Concerns No Information MEDICAL EQUIPMENT No Information MENTAL STATUS No Information FUNCTIONAL STATUS No Information ASSESSMENTS Encounter Date Diagnosis Assessment Notes Treatment Notes Treatm ent Clinical Notes Jun, Hypertension, unspecified type (ICD-10 - I10) Although patient's blood pressure is not fully at goal of less than 140/90, patient's blood pressure is better controlled and was at the last visit. Patient's blood pressure is most likely elevated as a side effect of the occlusion and stenosis of the right carotid artery. No changes were made to the patient's blood pressure medication at this time and patient will be followed up on after her carotid endarterectomy. Jun, Occlusion and stenosis of right carotid artery ( ICD-10 - I65.21) Patient has her carotid endarterectomy scheduled for 07/13/2020. Jun, Preoperative evaluation for tubal ligation (ICD- 10 - Z01.818) Advised patient to continue her metoprolol, hold her lisinopril and chlorthalidone midmorning of the surgery, and follow her vascular surgeon's recommendations for aspirin and Plavix. Patient is optimized from a primary care standpoint at this time. Patient is to follow-up with cardiology. Please see this note and note from 06/15/2020 for full details. PLAN OF TREATMENT Treatment Notes Assessment Notes Clinical Notes Hypertension, unspecified type Although patient's bloo d pressure is not fully at goal of less than 140/90, patient's blood pressure is better controlled and was at the last visit. Patient's blood pressure is most likely elevated as a side effect of the occlusion and stenosis of the right carotid artery. No changes were made to the patient's blood pressure medication at this time and patient will be followed up on after her carotid endarterectomy. Occlusion and stenosis of right carotid artery Patient has her carotid endarterectomy scheduled for 07/13/2020. Preoperative evaluation for tubal ligation Advised pat ient to continue her metoprolol, hold her lisinopril and chlorthalidone midmorning of the surgery, and follow her vascular surgeon's recommendations for aspirin and Plavix. Patient is optimized from a primary care standpoint at this time. Patient is to follow-up with cardiology. Please see this note and note from 06/15/2020 for full details. Next Appt Details 2-[address] Ravi Reason:E Follow Up:2-[address] Epstein Insurance Providers Payer Name Payer Address Payer Phone Insured Name Patient Relati onship to Insured Coverage Start Date Coverage End Date BCBS [employer] PPO [phone] [facility] [place] [id number] [place] self
--- OUTSIDE RECORDS SUMMARY | 2020-07-10 06:18 | CCD | Continuity of Care Document ---
Author Author Apolonia YUSUF MD Organization Unknown Address [address] [place] [address], [place] [address] Phone [phone] Care Team Providers Care Program Rep Name Role Phone Daylin Jennings MD AUTM [phone] Errol Aleman DO AUTM [phone] Problems Description No Information Available Social History Type Date Description Comments Sex Unknown ETOH Use Occasionally consumes alcohol Tobacco Use Start: Unknown Patient is a current smoker, smo kes every day started at age 22, currently using 1 ppd Smoking Status Reviewed: 06/24/20 Patient is a current smoker, smokes every day started at age 22, currently using 1 ppd Exercise Type/Frequency Does housework daily Exercise Limitations None Allergies, Adverse Reactions, Alerts Description No Known Drug Allergies Medications Active Medications SIG Qnty Indications Ordering Provide r Date Metoprolol Succinate ER 25mg Tablets ER 24HR 1 by mouth every day 30tabs I10 Sylvester Yusuf MD 06/24/2020 Vascepa 1gm Capsules 2 caps by mouth twice a day (take with meals) 120caps E78.2 Sylvester Yusuf MD 11/[address] 1 by mouth every day Unknown 06/23/2020 Atorvastatin Calcium 80mg Tablets 1 by mouth every night at bedtime Unknown 10/2020 Plavix 75mg Tablets 1 by mouth every day Unknown 06/23/2020 Chlorthalidone 25mg Tablets 1 by mouth every day Unknown 06/23/2020 Lisinopril 40mg Tablets 1 by mouth every day Unknown 06/23/2020 Multivitamin Tablets 1 by mouth every day Unknown 06/23/2020 Garlic 1000mg Capsules once d aily Unknown 06/23/2020 History Medications Fish Oil 1000mg Capsules 1 by mouth every day E78.2 Unknown 06/23/2020 - 11/2020 Immunizations Description No Information Available Vital Signs Date Vital Result Comment 06/24/2020 9:38am Weight 165.00 lb Home Weight 164lb home weight Height 64 inches 5'4" BMI (Body Mass Index) 28.3 kg/m2 Heart Rate 79 /min BP Systolic Sitting 165 mmHg CBP, adult cuff/Ra BP Diastolic Sitting 81 mmHg CBP, adult cuff/Ra Results Test Acquired Date Facility Test Result H/L Range Note Basic Metabolic Panel 06/15/2020 [facility] ed (315)- - Glucose 89 70-100 Blood Urea Nitrogen 16 7-18 Creatinine 0.79 0.55-1.30 Sodium 144 136-145 Potassium 4.2 3.5-5.1 Chloride 106 98-107 Carbon Dioxide 30 21-32 Calcium 9.3 8.2-9.6 GFR (Calculated) >60.0 >32 Procedures Date Code Description Status 06/24/2020 15256 Arterial Pressure Wa veform Analysis For Assessment Of Central Art Completed 06/24/2020 53259 ECG 12-Lead Completed Medical Devices Description No Information Available Encounters Type Date Location Provider Dx Diagnosis Office Visit 06/24/2020 9:45a Main Office Sylvester Yusuf MD E78.2 Mixed hyperlipidemia I10 Essential (primary) hyperten prabhakar R06.02 Shortness of breath Z01.810 Encounter for preprocedural cardiovascular examination E66.3 Overweight F17.210 Nicotine dependence, cigaret rowena, uncomplicated Z71.6 Tobacco abuse counseling Z71.3 Dietary counseling and surve illance Assessments Date Code Description Provider 06/24/2020 E78.2 Mixed hyperlipidemia Sylvester florence MD 06/24/2020 I10 Essential (primary) hypertension Sylvester Yusuf MD 06/24/2020 R06.02 Shortness of breath Sylvester ho MD 06/24/2020 Z01.810 Encounter for preprocedural card iovascular examination Sylvester Yusuf MD 06/24/2020 E66.3 Overweight Sylvester Yusuf MD 06/24/2020 F17.210 Nicotine dependence, cigarettes, uncomplicated Sylvester Yusuf MD 06/24/2020 Z71.6 Tobacco abuse counseling Sylvester Yusuf MD 06/24/2020 Z71.3 Dietary counseling and surveilla nce Sylvester Yusuf MD Plan of Treatment Future Appointment(s):* 07/27/2020 3:00 pm - ECHO at Main Office * 07/06/2020 8:30 am - Stress Nuclear/Reg Treadmill at Main Office 06/24/2020 - Sylvester Yusuf MD* E78.2 Mixed hyperlipidemia* New Medication:* Vascepa 1 gm - 2 caps by mouth twice a day (take with meals) * I10 Essential (primary) hypertension* New Medication:* Metoprolol Succinate ER 25 mg - 1 by mouth every day * R06.02 Shortness of breath* New Xrays:* US Echocardiogram Transthoracic W Doppler And Color Flow, Scheduled: 07/06/20 * NM Heart Myocardial Perfusion Spect Multiple Studies, Scheduled: 07/27/20 * Z01.810 Encounter for preprocedural cardiovascular examination * E66.3 Overweight * F17.210 Nicotine dependence, cigarettes, uncomplicated * Z71.6 Tobacco abuse counseling * Z71.3 Dietary counseling and surveillance * All * Follow up:* Clinic visit in [address] Yusuf. Functional Status Functional Condition Comment Date Status Independent with all ADL's Activ e Mental Status Description No Information Available Referrals Description No Information Available
--- OUTSIDE RECORDS SUMMARY | 2020-07-10 06:18 | CCD ---
Author Author [facility] Organization [facility] Address Unknown Phone Unavailable Care Team Providers Care Spray Unit Feeder Name Role Phone Errol Martinez Unavailable PROBLEMS Type Condition ICD9-CM Code TGI84-VO Code Onset Dates Condition S tatus SNOMED Code Notes Problem Amaurosis fugax G45.3 Active 76116484 Problem Occlusion and stenosis of right carotid artery I65 .21 Active 467721515895841 Problem Hypertension, unspecified type I10 Active 3 4560040 Problem Tobacco use Z72.0 Active 202294339 Problem Mixed hyperlipidemia E78.2 Active 951063505 Problem Cigarette nicotine dependence with other nicotin e-induced disorder F17.218 Active 07771489650511476 ALLERGIES No Known Allergies ENCOUNTERS from 1955 to 2020-06-16 Encounter Location Date Provider Diagnosis [facility] [place] [place] Resident [address] [place] [address] May, Errol Martinez Occlusion and stenosis of ri ght carotid artery I65.21 ; Pre- op exam Z01.818 and Hypertension, unspecified type I10 IMMUNIZATIONS Vaccine Route Administration Date Status Zoster [...] Education Language: Question Answer Notes Languages spoken: Greenlandic Sexual Hx: Question Answer Notes Had sex [...] FOR REFERRAL No Information VITAL SIGNS Weight 170 lbs May, Height 64 in May, BMI 29.18 kg/m2 May, Heart Rate 103 /min May, Respiratory Rate 18 /min May, Temperature 97.9 degrees Fahrenheit May, Oximetry 98 May, Blood pressure systolic 194 mm Hg May, Blood pressure diastolic 90 mm Hg May, MEDICATIONS Medication SIG (Take, Route, Frequency, Duration) Notes Start Da te End Date Status Atorvastatin Calcium 80 MG 1 tablet Orally Once a day for 30 Active Aspirin 81 MG 1 tablet Orally Once a day for 30 day(s) Active Plavix 75 MG 1 tablet Orally Once a day for 30 day(s) Active Chlorthalidone 25 MG 1 tablet in the morning with food Orally Once a day for 30 day(s) May, Active Lisinopril 40 MG 1 tablet Orally Once a day for 30 Active PROCEDURES No Information RESULTS No Results REASON FOR VISIT Dr Cunha, 07/10/20, carotid endartectomy MEDICAL (GENERAL) HISTORY Type Description Date Medical [...] Notes Treatment Notes Treatm ent Clinical Notes May, Occlusion and stenosis of right carotid artery ( ICD-10 - I65.21) Patient is scheduled for carotid endarterectomy for the right coronary artery on 07/10/2020. Patient is currently on aspirin, Plavix, and atorvastatin 80 mg for this. May, Pre-op exam (ICD-10 - Z01.818) Patient presents for preoperative evaluation for carotid endarterectomy on 07/09/2020. Review of their medical history, medications were performed. At this time patient will be seeing cardiology on 06/24/2020 prior to surgery. Patient does require any further laboratory evaluation with base metabolic profile prior to surgery. Surgical risk was reviewed with patient. Patient is a class II risk for surgery according to the RCRI risk calculator as this is a super inguinal vascular procedure. This puts the patient had a 6.0% risk of a myocardial infarction, cardiac arrest, or within 30 days of surgery. Surgical risk was explained to patient, they understand risks of surgery and wish to proceed with surgery. Patient was counseled to hold lisinopril prior to the surgery and follow her vascular surgeon's advice on the aspirin and Plavix. Patient is not medically optimized for surgery at this time as her blood pressure is quite elevated in the office today. See below for further detail. May, Hypertension, unspecified type (ICD-10 - I10) Patient's blood pressure was elevated on multiple rechecks in the office. We'll start chlorthalidone 25 mg and I'll see the patient back in 2 weeks. Also advised patient to obtain a blood pressure cuff and take her blood pressure at home and bring those readings in at her next visit. If the patient's blood pressure is better controlled at the next office visit, patient will be optimized for surgery at that time. PLAN OF TREATMENT Medication Medication Name Sig Start Date Stop Date Chlorthalidone 25 MG 1 tablet in the morning with food Orally Once a day for 30 day(s) May, Treatment Notes Assessment Notes Clinical Notes Occlusion and stenosis of right carotid artery Patient is scheduled for carotid endarterectomy for the right coronary artery on 07/10/2020. Patient is currently on aspirin, Plavix, and atorvastatin 80 mg for this. Pre-op exam Patient presents for preoper ative evaluation for carotid endarterectomy on 07/09/2020. Review of their medical history, medications were performed. At this time patient will be seeing cardiology on 06/24/2020 prior to surgery. Patient does require any further laboratory evaluation with base metabolic profile prior to surgery. Surgical risk was reviewed with patient. Patient is a class II risk for surgery according to the RCRI risk calculator as this is a super inguinal vascular procedure. This puts the patient had a 6.0% risk of a myocardial infarction, cardiac arrest, or within 30 days of jeremías parker. Surgical risk was explained to patient, they understand risks of surgery and wish to proceed with surgery. Patient was counseled to hold lisinopril prior to the surgery and follow her vascular surgeon's advice on the aspirin and Plavix. Patient is not medically optimized for surgery at this time as her blood pressure is quite elevated in the office today. See below for further detail. Hypertension, unspecified type Patient's blood pressur e was elevated on multiple rechecks in the office. We'll start chlorthalidone 25 mg and I'll see the patient back in 2 weeks. Also advised patient to obtain a blood pressure cuff and take her blood pressure at home and bring those readings in at her next visit. If the patient's blood pressure is better controlled at the next office visit, patient will be optimized for surgery at that time. Treatment Notes Test Name Order Date Basic Metabolic Profile (BMP) 2020-06-16 Next Appt Details 2 Weeks Reason:follow up bp for pre-op Provider Name:Errol Martinez, 2020-07-01 08:30:00 AM, [address] [facility], [place], [place], [id number], Follow Up:2 Weeksfollow up bp for pre-op Insurance Providers Payer Name Payer Address Payer Phone Insured Name Patient Relati onship to Insured Coverage Start Date Coverage End Date [employer] PPO [phone] [facility] [place]D [id number] [place]
--- OUTSIDE RECORDS SUMMARY | 2020-07-10 06:19 | CCD ---
Author Author [facility] Organization [facility] Address Unknown Phone Unavailable Care Team Providers Care Trestleman Name Role Phone STACIAOL, Lana CRUZ MD Unavailable Unavailable ANTECOL, aLna CRUZ MD Unavailable Unavailable ANTECOLLana MD Unavailable Unavailable ANTECOLLana MD Unavailable Unavailable ANTECOLLana MD Unavailable Unavailable ANTECOLLana MD Unavailable Unavailable ANTECOLLana MD Unavailable Unavailable ANTECOLLana MD Unavailable Unavailable ANTECOLLana MD Unavailable Unavailable ANTECOLLana MD Unavailable Unavailable ANTECOLLana MD Unavailable Unavailable ANTECOLLana MD Unavailable Unavailable ANTECOLLana MD Unavailable Unavailable ANTECOLLana MD Unavailable Unavailable ANTECOLLana MD Unavailable Unavailable ANTECOLLana MD Unavailable Unavailable ANTECOLLana MD Unavailable Unavailable ANTECOLLana MD Unavailable Unavailable ANTECOLLana MD Unavailable Unavailable ANTECOLLana MD Unavailable Unavailable ANTECOLLana MD Unavailable Unavailable ANTECOLLana MD Unavailable Unavailable ANTECOLLana MD Unavailable Unavailable ANTECOLLana MD Unavailable Unavailable ANTECOLLana MD Unavailable Unavailable ANTECOLLana MD Unavailable Unavailable ANTECOLLana MD Unavailable Unavailable ANTECOL, Lana CRUZ MD Unavailable Unavailable ANTECOL, Lana CRUZ MD Unavailable Unavailable ANTECOL, Lana CRUZ MD Unavailable Unavailable ANTECOL, Lana CRUZ MD Unavailable Unavailable ANTECOL, Lana CRUZ MD Unavailable Unavailable ANTECOL, Lana CRUZ MD Unavailable Unavailable ANTECOL, Lana CRUZ MD Unavailable Unavailable ANTECOL, Lana CRUZ MD Unavailable Unavailable ANTECOL, Lana CRUZ MD Unavailable Unavailable ANTECOL, Lana CRUZ MD Unavailable Unavailable ANTECOL, Lana CRUZ MD Unavailable Unavailable ANTECOL, Lana CRUZ MD Unavailable Unavailable ANTECOL, Lana CRUZ MD Unavailable Unavailable ANTECOL, Lana CRZU MD Unavailable Unavailable ANTECOL, Lana CRUZ MD Unavailable Unavailable ANTECOL, H ANTHONY MELÉNDEZ Unavailable Unavailable ANTECOL, Lana CRUZ MD Unavailable Unavailable ANTECOL, Lana CRUZ MD Unavailable Unavailable ANTECOL, Lana CRUZ MD Unavailable Unavailable ANTECOL, Lana CRUZ MD Unavailable Unavailable ANTECOL, Lana CRUZ MD Unavailable Unavailable ANTECOL, Lana CRUZ MD Unavailable Unavailable ANTECOL, Lana CRUZ MD Unavailable Unavailable ANTECOL, Lana CRUZ MD Unavailable Unavailable ANTECOL, Lana CRUZ MD Unavailable Unavailable ANTECOL, Lana CRUZ MD Unavailable Unavailable ANTECOL, Lana CRUZ MD Unavailable Unavailable ANTECOL, Lana CRUZ MD Unavailable Unavailable Re-disclosure Warning The records that you are about to access may contain information from federally-assisted alcohol or drug abuse programs. If such information is present, then the following federally mandated warning applies: This information has been disclosed to you from records protected by federal confidentiality rules (42 CFR part 2). The federal rules prohibit you from making any further disclosure of this information unless further disclosure is expressly permitted by the written consent of the person to whom it pertains or as otherwise permitted by 42 CFR part 2. A general authorization for the release of medical or other information is NOT sufficient for this purpose. The Federal rules restrict any use of the information to criminally investigate or prosecute any alcohol or drug abuse patient.The records that you are about to access may contain highly sensitive health information, the redisclosure of which is protected by Article 27-F of the [place] State Public Health law. If you continue you may have access to information: Regarding HIV / AIDS; Provided by facilities licensed or operated by the [facility] Office of Mental Health; or Provided by the [facility] Office for People With Developmental Disabilities. If such information is present, then the following [facility] mandated warning applies: This information has been disclosed to you from confidential records which are protected by state law. State law prohibits you from making any further disclosure of this information without the specific written consent of the person to whom it pertains, or as otherwise permitted by law. Any unauthorized further disclosure in violation of state law may result in a fine or nursing home sentence or both. A general authorization for the release of medical or other information is NOT sufficient authorization for further disc losure. Family History Family Member Name Family Member Gender Family Member Status Date o f Status Description Data Source(s) Unknown Male Problem MEDENT ([facility] ) Encounters Encounter Providers Location Date Indications Data Source(s ) Outpatient [address] [facility] [id number] 07/01/2020 12:00:00 AM EST eCW1 ([facility]) Outpatient Attender: ANTHONY YUSUF MD Main Office 06/24/2020 08:45:00 AM EST [facility] ([facility]) Outpatient [address] [place] [phone] 06/15/2020 12:00:00 AM EST eCW1 ([facility]) Unknown [address] [place] [phone] 03/27/2020 12:00:00 AM EDT eCW1 ([facility]) Outpatient 09/27/2019 01:28:00 PM EDT [facility] Outpatient 09/27/2019 01:28:00 PM EDT [facility] G[facility] Resident [address] [place] [phone] 07/04/2019 12:00:00 AM EST eCW1 ([facility]) [facility] Resident [address] [place] [phone] 06/24/2019 12:00:00 AM EST eCW1 ([facility]) [facility] Resident [address] [place] [phone] 05/28/2019 12:00:00 AM EST eCW1 ([facility]) Medications Medication Brand Name Start Date Product Form Dose Route Admi nistrative Instructions Pharmacy Instructions Status Indications Reaction Description Data Source(s) icosapent ethyl 1000 MG Oral Capsule [Vascepa] Vascepa 06/24/2020 12:00:00 AM EST ORAL active [facility] ([facility]) 24 HR metoprolol succinate 25 MG Extended Release Oral Tablet Metoprolol Succinate ER 06/24/2020 12:00:00 AM EST ORAL active [facility] ([facility]) 25 mg 06/24/2020 12:00:00 AM EST tablet extended release 24 hr 30 TAKE ONE TABLET BY MOUTH EVERY DAY TAKE ONE TABLET BY MOUTH EVERY DAY SOLD: 07/01/2020 [facility] Multivitamin 06/23/2020 12:00:00 AM EST ORAL activ e [facility] ([facility]) Garlic 06/23/2020 12:00:00 AM EST active [facility] ([facility]) Lisinopril 40 MG Oral Tablet Lisinopril 06/23/2020 12:00:00 AM EST ORAL active [facility] ([facility]) docosahexaenoic acid 120 MG / Eicosapentaenoic Acid 18 0 MG Oral Capsule Fish Oil 06/23/2020 12:00:00 AM EST ORAL completed [facility] ([facility]) clopidogrel 75 MG Oral Tablet [Plavix] Plavix 06/23/2020 12:00:00 AM EST ORAL active [facility] ([facility]) Chlorthalidone 25 MG Oral Tablet Chlorthalidone 06/23/2020 12:00:00 A M EST ORAL active [facility] ([facility]) Aspirin 81 MG Delayed Release Oral Tablet Aspirin 06/23/2020 1 2:00:00 AM EST ORAL active [facility] atorvastatin 80 MG Oral Tablet Atorvastatin Calcium 06/23/2020 1 2:00:00 AM EST ORAL active [facility] ( [facility]) Chlorthalidone 25 MG Oral Tablet Chlorthalidone 25 MG 2019 12:00:00 AM EST 1.0 {tablet_in_the_morning_with_food} active Chlorthalidone 25 MG eCW1 ([facility]) 25 mg 06/15/2020 12:00:00 AM EST tablet 30 TAKE ONE TABLET BY MOUTH EVERY MORNING WITH FOOD TAKE ONE TABLET BY MOUTH EVERY MORNING WITH FOOD SOLD: 06/15/2020 [facility] Chlorthalidone 25 MG Oral Tablet Chlorthalidone 25 MG 2019 12:00:00 AM EST 1.0 {tablet_in_the_morning_with_food} active Chlorthalidone 25 MG eCW1 ([facility]) 75 mg 05/21/2020 12:00:00 AM EST tablet 30 TAKE ONE TABLET BY MOUTH EVERY DAY TAKE ONE TABLET BY MOUTH EVERY DAY SOLD: 06/03/2020 [facility] 75 mg 05/21/2020 12:00:00 AM EST tablet 30 TAKE ONE TABLET BY MOUTH EVERY DAY TAKE ONE TABLET BY MOUTH EVERY DAY SOLD: 07/05/2020 [facility] 80 mg 04/01/2020 12:00:00 AM EDT tablet 30 TAKE 1 TABLET BY MOUTH ONCE A DAY TAKE 1 TABLET BY MOUTH ONCE A DAY SOLD: 06/03/2020 [facility] 80 mg 04/01/2020 12:00:00 AM EDT tablet 30 TAKE 1 TABLET BY MOUTH ONCE A DAY TAKE 1 TABLET BY MOUTH ONCE A DAY SOLD: 07/05/2020 [facility] atorvastatin 80 MG Oral Tablet ATORVASTATIN CALCIUM 04/01/2020 1 2:00:00 AM EDT tablet 30 TAKE 1 TABLET BY MOUTH ONCE A DAY TAKE 1 TABLET BY MOUTH ONCE A DAY SOLD: 04/01/2020 [facility] 40 mg 03/31/2020 12:00:00 AM EDT tablet 30 TAKE 1 TABLET BY MOUTH ONCE A DAY TAKE 1 TABLET BY MOUTH ONCE A DAY SOLD: 06/15/2020 [facility] 40 mg 03/31/2020 12:00:00 AM EDT tablet 30 TAKE 1 TABLET BY MOUTH ONCE A DAY TAKE 1 TABLET BY MOUTH ONCE A DAY SOLD: 04/01/2020 [facility] 40 mg 03/31/2020 12:00:00 AM EDT tablet 30 TAKE 1 TABLET BY MOUTH ONCE A DAY TAKE 1 TABLET BY MOUTH ONCE A DAY SOLD: 05/13/2020 [facility] 80 mg 01/21/2020 12:00:00 AM EDT tablet 30 TAKE ONE TABLET BY MOUTH EVERY DAY TAKE ONE TABLET BY MOUTH EVERY DAY SOLD: 02/08/2020 [facility] 80 mg 01/21/2020 12:00:00 AM EDT tablet 30 TAKE ONE TABLET BY MOUTH EVERY DAY TAKE ONE TABLET BY MOUTH EVERY DAY SOLD: 03/13/2020 [facility] 80 mg 10/01/2019 12:00:00 AM EDT tablet 30 TAKE ONE TABLET BY MOUTH EVERY DAY TAKE ONE TABLET BY MOUTH EVERY DAY SOLD: 11/09/2019 [facility] atorvastatin 80 MG Oral Tablet ATORVASTATIN CALCIUM 10/01/2019 1 2:00:00 AM EDT tablet 30 TAKE ONE TABLET BY MOUTH EVERY D AY TAKE ONE TABLET BY MOUTH EVERY DAY SOLD: 12/14/2019 [facility] 80 mg 10/01/2019 12:00:00 AM EDT tablet 30 TAKE ONE TABLET BY MOUTH EVERY DAY TAKE ONE TABLET BY MOUTH EVERY DAY SOLD: 10/01/2019 [facility] 80 mg 08/27/2019 12:00:00 AM EDT tablet 30 TAKE ONE TABLET BY MOUTH ONCE DAILY TAKE ONE TABLET BY MOUTH ONCE DAILY SOLD: 08/30/2019 [facility] 40 mg 08/13/2019 12:00:00 AM EST tablet 30 TAKE 1 TABLET BY MOUTH ONCE DAILY TAKE 1 TABLET BY MOUTH ONCE DAILY SOLD: 01/06/2020 [facility] 40 mg 08/13/2019 12:00:00 AM EST tablet 30 TAKE 1 TABLET BY MOUTH ONCE DAILY TAKE 1 TABLET BY MOUTH ONCE DAILY SOLD: 11/26/2019 [facility] 40 mg 08/13/2019 12:00:00 AM EST tablet 30 TAKE 1 TABLET BY MOUTH ONCE DAILY TAKE 1 TABLET BY MOUTH ONCE DAILY SOLD: 08/13/2019 [facility] 40 mg 08/13/2019 12:00:00 AM EST tablet 30 TAKE 1 TABLET BY MOUTH ONCE DAILY TAKE 1 TABLET BY MOUTH ONCE DAILY SOLD: 09/11/2019 [facility] 40 mg 08/13/2019 12:00:00 AM EST tablet 30 TAKE 1 TABLET BY MOUTH ONCE DAILY TAKE 1 TABLET BY MOUTH ONCE DAILY SOLD: 10/14/2019 [facility] 40 mg 08/13/2019 12:00:00 AM EST tablet 30 TAKE 1 TABLET BY MOUTH ONCE DAILY TAKE 1 TABLET BY MOUTH ONCE DAILY SOLD: 02/08/2020 [facility] 80 mg 07/25/2019 12:00:00 AM EST tablet 30 TAKE ONE TABLET BY MOUTH EVERY DAY TAKE ONE TABLET BY MOUTH EVERY DAY SOLD: 07/25/2019 [facility] atorvastatin 80 MG Oral Tablet Atorvastatin Calcium 80 MG Atorvastatin Calcium 80 MG 06/24/2019 12:00:00 AM EST active 1 tablet eCW1 ([facility]) 80 mg 06/24/2019 12:00:00 AM EST tablet 30 TAKE ONE TABLET BY MOUTH EVERY DAY TAKE ONE TABLET BY MOUTH EVERY DAY SOLD: 06/24/2019 [facility] 40 mg 01/23/2019 12:00:00 AM EDT tablet 30 TAKE ONE TABLET BY MOUTH ONCE DAILY TAKE ONE TABLET BY MOUTH ONCE DAILY SOLD: 06/11/2019 [facility] 40 mg 01/23/2019 12:00:00 AM EDT tablet 30 TAKE ONE TABLET BY MOUTH ONCE DAILY TAKE ONE TABLET BY MOUTH ONCE DAILY SOLD: 07/12/2019 [facility] Insurance Providers Payer name Policy type / Coverage type Policy ID Covered alliance party ID Covered alliance party's relationship to shankar Policy Shankar Plan Information [employer] HMO [id number] SP [id number] [employer] [place] [id number] SP [id number] [place] [place]/307 [id number] SP [id number] SELF PAY ONLY [id number] SP [id number] [employer]CELLUS BCBS B [id number] S [id number] [employer] [place] 302/307 [id number] SP [id number] SELF PAY ONLY [id number] SP [id number] SELF PAY ONLY - [id number] SP [id number] Problems, Conditions, and Diagnoses Code Display Name Description Problem Type Effective Dates Data Source(s) I65.21 [id number] Occlusion and stenosis of right caroti d artery Problem 06/15/2020 12:00:00 AM EST eCW1 ([facility]) F17.218 [id number] Cigarette nicotine d ependence with other nicotine- induced disorder Problem 06/24/2019 12:00:00 AM EST eCW1 ([facility]) G45.3 [id number] Amaurosis fugax Problem 06/24/2019 12:00:00 AM EST eCW1 ([facility]) G45.3 [id number] Amaurosis fugax Problem 06/24/2019 12:00:00 AM EST eCW1 ([facility]) F17.218 [id number] Cigarette nicotine d ependence with other nicotine- induced disorder Problem 06/24/2019 12:00:00 AM EST eCW1 ([facility]) Surgeries/Procedures Procedure Description Date Indications Data Source(s) ECG ROUTINE ECG W/LEAST 12 LDS W/I&R 06/24/2020 12:00: 00 AM EST MEDENT ([facility]) Arterial Pressure Waveform Analysis For Assessment Of Centra l Art 06/24/2020 12:00:00 AM EST [facility] ([facility] BEHAV CHNG SMOKING 3-10 MIN 06/24/2019 12:00:00 AM EST eCW1 ([facility]) Results ID Date Data Source [id number] 07/05/2020 10:15:00 AM EST [facility] Name Value Range Interpretation Code Description Data Emily rce(s) Supporting Document(s) SARS coronavirus 2 RNA Not Detected [facility] [place] This lab was ordered by [facility] and reported by [facility]. ID Date Data Source [id number] 06/15/2020 04:18:00 PM EST [facility] ([facility]) Name Value Range Interpretation Code Description Data Emily rce(s) Supporting Document(s) Blood Urea Nitrogen 16 7-18 [facility] ([facility]) Glucose 89 70-100 [facility] Potassium 4.2 3.5-5.1 [facility] Creatinine 0.79 0.55-1.30 [facility] ([facility]) Sodium 144 136-145 [facility] Chloride 106 98-107 [facility] Calcium 9.3 8.2-9.6 [facility] Carbon Dioxide 30 21-32 [facility] ([facility]) Glomerular filtration rate/1.73 sq M.pre dicted [Volume Rate/Area] in Serum or Plasma by Creatinine-based formula (MDRD) Laboratory test result MEDENT ([facility]) Procedure Social History Code Duration Value Status Description Data Source(s ) Smoking 07/01/2020 12:00:00 AM EST Current Smoker completed Curre nt Smoker eCW1 ([facility]) Smoking 06/15/2020 12:00:00 AM EST Current Smoker completed Curre nt Smoker eCW1 ([facility]) Smoking 06/24/2019 12:00:00 AM EST Current Smoker completed Curre nt Smoker eCW1 ([facility]) Vital Signs ID Date Data Source UNK Name Value Range Interpretation Code Description Data Source(s) Diastolic blood pressure 74 mm[Hg] 74 mm[Hg] eCW1 ([facility]) Systolic blood pressure 148 mm[Hg] 148 mm[Hg] e CW1 ([facility]) Body temperature 97.2 [degF] 97.2 [degF] eCW1 ( [facility]) Respiratory rate 17 /min 17 /min eCW1 ([facility]) Heart rate 90 /min 90 /min eCW1 ([facility]) Body mass index (BMI) [Ratio] 28.66 kg/m2 28.66 kg/m2 eCW1 ([facility]) Body height 64 [in_i] 64 [in_i] eCW1 ([facility]) Body weight 167 [lb_av] 167 [lb_av] eCW1 ([facility]) Diastolic blood pressure--sitting 81 mm[Hg] 81 mm[Hg] MEDENT ([facility]) CBP, adult cuff/Ra Systolic blood pressure--sitting 165 mm[Hg] 165 mm[Hg] MEDENT ([facility]) CBP, adult cuff/Ra Heart rate 79 /min 79 /min [facility] ([facility]) Body mass index (BMI) [Ratio] 28.3 kg/m2 28.3 k g/m2 MEDENT ([facility]) Body height 64 [in_i] 64 [in_i] [facility] ([facility]) 5'4" Body weight 165.00 [lb_av] 165.00 [lb_av] MEDEN T ([facility]) Diastolic blood pressure 90 mm[Hg] 90 mm[Hg] eCW1 ([facility]) Systolic blood pressure 194 mm[Hg] 194 mm[Hg] e CW1 ([facility]) Body temperature 97.9 [degF] 97.9 [degF] eCW1 ( [facility]) Respiratory rate 18 /min 18 /min eCW1 ([facility]) Heart rate 103 /min 103 /min eCW1 ([facility]) Body mass index (BMI) [Ratio] 29.18 kg/m2 29.18 kg/m2 eCW1 ([facility]) Body height 64 [in_i] 64 [in_i] eCW1 ([facility]) Body weight 170 [lb_av] 170 [lb_av] eCW1 ([facility]) Diastolic blood pressure 80 mm[Hg] 80 mm[Hg] eCW1 ([facility]) Systolic blood pressure 142 mm[Hg] 142 mm[Hg] e CW1 ([facility]) Body temperature 98.3 [degF] 98.3 [degF] eCW1 ( [facility]) Respiratory rate 18 /min 18 /min eCW1 ([facility]) Heart rate 90 /min 90 /min eCW1 ([facility]) Body mass index (BMI) [Ratio] 28.04 kg/m2 28.04 kg/m2 eCW1 ([facility]) Body height 64 [in_us] 64 [in_us] eCW1 ([facility]) Body weight Measured 163.4 [lb_av] 163.4 [lb_av ] eCW1 ([facility]) Patient Treatment Plan of Care Planned Activity Planned Date Details Description Data Source (s) Chlorthalidone 25 MG Oral Tablet 06/15/2020 12:00:00 AM EST eCW1 ([facility]) atorvastatin 80 MG Oral Tablet 06/24/2019 12:00:00 AM EST eCW1 ([facility])
[2020-07-10 06:52] LABS: HEMATOCRIT 40.1 % (36.0-47.0); HEMOGLOBIN 13.5 g/dl (12.0-15.5); MEAN CORPUSCULAR HGB CONC 33.7 g/dl (32.0-36.5); PLATELET COUNT, AUTOMATED 203 10^3/uL (150-450); RED BLOOD COUNT 4.36 10^6/uL (4.00-5.40); WHITE BLOOD COUNT 7.8 10^3/uL (4.0-10.0)
[2020-07-10 07:04] LABS: INR 0.89; PROTHROMBIN TIME 12.2 SECONDS (12.5-14.3)
[2020-07-10 07:05] LABS: PARTIAL THROMBOPLASTIN TIME 35.1 SECONDS (24.2-38.5)
[2020-07-10] MEDS ORDERED: propofoL 200 MG/20 ML VIAL As Ordered ONE ×2 (07:08→12:43)
[2020-07-10] MEDS ORDERED: LIDOCAINE 2% 100MG/5ML SDV (FOR ANES.) As Ordered ONE (07:08)
[2020-07-10] MEDS ORDERED: ROCURONIUM BROMIDE 50 MG/5 ML VIAL As Ordered ONE ×2 (07:08→08:13)
[2020-07-10] MEDS ORDERED: SUGAMMADEX SODIUM 500 MG/5 ML VIAL (BRIDION) As Ordered ONE (07:09)
[2020-07-10] MEDS ORDERED: ACETAMINOPHEN 1000MG 100ML IV BTL (OFIRMEV) (J0131 PER 10MG) As Ordered ONE (07:09)
[2020-07-10] MEDS ORDERED: fentaNYL 100 MCG/2 ML INJECTION (J3010) As Ordered ONE ×2 (07:09→12:35)
[2020-07-10] MEDS ORDERED: HEPARIN SOD (PORCINE) 5000UNITS/ML 1ML VIAL/SYRINGE As Ordered ONE ×3 (07:09→12:48)
[2020-07-10] MEDS ORDERED: dexameTHASONE 4 MG/ML 1ML VIAL (J1100 PER 1MG) As Ordered ONE ×2 (07:09→13:49)
[2020-07-10] MEDS ORDERED: MIDAZOLAM INJ 2MG/2ML VIAL (J2250 PER 1MG) As Ordered ONE ×2 (07:09→12:42)
[2020-07-10] MEDS ORDERED: ONDANSETRON 4MG/2ML VIAL As Ordered ONE (07:09)
[2020-07-10] MEDS ORDERED: THROMBIN SOLN 20,000 UNITS KIT As Ordered ONE ×2 (07:13→11:06)
[2020-07-10] MEDS ORDERED: LIDOCAINE 1% SDV 30ML VIAL As Ordered ONE ×2 (07:13→12:47)
[2020-07-10 07:16] LABS: BLOOD UREA NITROGEN 18 MG/DL (7-18); CALCIUM LEVEL 9.4 MG/DL (8.8-10.2); CARBON DIOXIDE LEVEL 30 MEQ/L (21-32); CHLORIDE LEVEL 99 MEQ/L (98-107); CREATININE FOR GFR 0.95 MG/DL (0.55-1.30); GLOMERULAR FILTRATION RATE > 60.0 (>45); GLUCOSE, FASTING 114 MG/DL (70-100); POTASSIUM SERUM 4.2 MEQ/L (3.5-5.1); SODIUM LEVEL 137 MEQ/L (136-145)
[2020-07-10] MEDS ORDERED: METOPROLOL SUCC *XL* 25MG TAB (TopROL *XL*) As Ordered ONE (07:20)
[2020-07-10] MEDS ORDERED: METOPROLOL SUCC *XL* 25MG TAB (TopROL *XL*) PO ONE (07:30)
[2020-07-10] MEDS ORDERED: PHENYLephrine 500MCG 5ML (100MCG/ML) SYRINGE As Ordered ONE ×2 (09:47→10:07)
[2020-07-10] MEDS ORDERED: BUPIVACAINE/EPIN 0.25% 30 ML VIAL As Ordered ONE ×2 (10:11→13:35)
[2020-07-10] MEDS ORDERED: LABETALOL 100MG/20ML VIAL As Ordered ONE ×5 (10:55→13:54)
--- NOTE | 2020-07-10 11:03 | ROOPDOC ---
[facility] Report Of Operation Report of Operation DATE OF PROCEDURE: 07/10/20 PREPROCEDURE DIAGNOSES: Right carotid stenosis POSTPROCEDURE DIAGNOSES: Same PROCEDURE: Right carotid endarterectomy with xenosure patch angioplasty SURGEON: Ranjan Jennings MD ANESTHESIA: Gen. anesthesia and local INDICATION FOR PROCEDURE: This a very pleasant 64-year-old patient with asymptomatic severe right internal carotid artery stenosis. Risks benefits and alternatives to right carotid endarterectomy were explained to the patient and she was agreeable to proceed. Informed consent was obtained. She is on best medi jacob management with aspirin Plavix and statin and we will continue this within the perioperative period to minimize stroke risk. REPORT OF OPERATION: Patient was brought to the operating room in stable condition and placed supine on the or table. General anesthesia and antibiotics were administered without complication. Her right neck was prepped and draped in a sterile fashion. A timeout was performed. An oblique incision was made over the anterior border of the sternocleidomastoid and carried down to the subcutaneous tissues Bovie cautery. He continued or dissection through the platysma to the anterior border of the sternocleidomastoid. We continued her dissection along the anterior border of the sternocleidomastoid onto the jugular vein. Had extensive lymph nodes over the jugular vein that were mobilized medially. Branches of the jugular vein were carefully suture ligated and div ided. We then continued her dissection down to the common carotid artery which was skeletonized proximally and distally in a vessel loop was placed. He continued or dissection onto the external carotid artery and this. Thyroid artery and Vesseloops replaced. We then had a challenging time mobilizing the internal carotid artery has had quite a bit of adhesions and was located very p osteriorly. The hypoglossal nerve was fairly low and tethered to the internal carotid artery with some fibrous tissue. We carefully mobilized the nerve and preserved it. We then dissected distally on the internal carotid artery and carefully dissected away the adhesions and mobilized the artery more anteriorly. We dissected distal to the area as palpable plaque in the proximal internal carotid artery and a vessel loop was placed. 5000 units of heparin was given and onto circulate. We selected an 8 [place] shunt. We maintain the patient's blood pressure between 140-160 mmHg systolic while shunted. Anesthesia was very helpful with maintaining appropriate blood pressure. We then secured the Vesseloops and an arteriotomy was made from the common carotid artery onto the internal carotid artery above the near occlusive plaque. We then placed the shunt into the internal carotid artery and resecure the vessel. Backbleeding was noted. We then passed a shunt into the common carotid artery and resecure the vessel loop. Good flow was confirmed to the shunt with a Doppler. We then endarterectomized the common carotid artery, external carotid artery proximally, and the internal carotid artery. The plaque was sent for pathology. Care was taken to remove a loose intima and debris. We irrigated with heparinized saline to mobilize any additional loose intima or debris which was removed. We had a g ood endpoint at the internal carotid artery and this was secured with a single 6-0 Prolene tacking suture. Next we selected as xenosure patch and uses to close the arteriotomy with a running 5-0 Prolene hemostatic suture. Before the final sutures are placed, we flushed the inflow and outflow arteries and irrigated with heparinized saline. We then removed the shunt and placed her final sutures. We restarted flow first through the external carotid artery has very thyroid artery, then the common carotid artery, and after 10 beats the heart we restart flow to the internal carotid artery. Good hemostasis was noted overall, but there was still some oozing from the needle holes. Surgicel was placed over the patch and pressure was held for 5 minutes. Following this we still had some oozing from the needle holes. Surgicel and pressure was repeated for 5 minutes. Following this there was good hemostasis. Bovie cautery was used for hemostasis within the muscle and soft tissue were needed. We irrigated with copious amounts of saline. A MICHAEL drain was placed and sutured at the neck with nylon suture. We then approximated the platysmal layer with 2-0 Vicryl suture. The dermal layer was approximated with interrupted 4-0 Vicryl suture. The skin was closed with a running subcuticular Monocryl suture. Incision was clean dry. Mastisol and Steri-Strips replace the length of the incision. A drain sponge was placed around the drain and Tegaderms were used to secure the dressings due to the patient's adhesive allergy. We then allowed her for 20 can from anesthesia. She was able to move both her upper and lower extremities open her eyes and follow commands prior to extubation. She was then taken to recovery in stable condition. ESTIMATED BLOOD LOSS: Approximately 250 mL. COMPLICATIONS: None. PLAN: We will admit the patient to the hospitalist service, ICU. We will have a goal systolic blood pressure of 90 mmHg to 140 mmHg, heart rate goal 60-80. We will monitor for right neck swelling, drainage output, and neurovascular checks as well. Tomorrow, if the drain output is minimal we will remove the drain. The patient will be able to ambulate with the nurses, and if she can also eat and does not have any neurologic changes, we will be able to discharge home in the morning. We will continue aspirin and Plavix during the perioperative period. This helps to minimize perioperative stroke risk. We appreciate the opportunity to participate in the care of this patient. RANJAN JENNINGS MD Jul 10, 2020 11:03
[2020-07-10] MEDS: LABETALOL 100MG/20ML VIAL IV PRN ×5 (11:10→19:49)
[2020-07-10] MEDS ORDERED: ONDANSETRON 4MG/2ML VIAL IV PRN ×4 (11:15→16:45)
[2020-07-10] MEDS ORDERED: PERCOCET 5MG/325MG TAB PO PRN (11:15)
[2020-07-10] MEDS ORDERED: METOPROLOL 5 MG/5 ML VIAL IV PRN ×3 (11:15→11:30)
[2020-07-10] MEDS ORDERED: LR 1,000 ML IV SCH (11:30)
[2020-07-10] MEDS ORDERED: oxyCODONE 5MG TAB PO PRN (11:30)
[2020-07-10] MEDS ORDERED: METOCLOPRAMIDE INJ 10MG/2ML VIAL (J2765 PER 1) IV PRN (11:30)
[2020-07-10] MEDS: hydrALAZINE 20MG/ML 1ML VIAL (J0360 PER 20MG) IV PRN ×2 (12:40→12:45)
[2020-07-10] MEDS: fentaNYL 100 MCG/2 ML INJECTION (J3010) IV PRN ×2 (12:55→13:00)
[2020-07-10] MEDS ORDERED: ceFAZolin 2 GM/D5W 50 ML IV BAG (J0690 PER 500MG) As Ordered ONE (13:24)
[2020-07-10] MEDS ORDERED: KETAMINE HCL 200 MG/20 ML VIAL As Ordered ONE (13:28)
--- NOTE | 2020-07-10 14:04 | ROOPDOC ---
[facility] Report Of Operation Report of Operation DATE OF PROCEDURE: 07/10/20 PREPROCEDURE DIAGNOSES: Hematoma right neck status post right carotid endarterectomy POSTPROCEDURE DIAGNOSES: Same PROCEDURE: Evacuation hematoma right neck SURGEON: Ranjan Jennings MD ANESTHESIA: Moderate anesthesia care and local INDICATION FOR PROCEDURE: This is a very pleasant 64-year-old patient who underwent a right carotid endarterectomy earlier today, and postoperatively developed a right neck hematoma that was symptomatic. Risks benefits and alternatives to hematoma evacuation were explained to the patient. We urgently brought her to the OR for hematoma evacuation. REPORT OF OPERATION: Our patient was brought to the OR in stable condition urgently. Monitored anesthesia care and antibiotics were administered without convocation. Her right neck was quickly prepped and draped in sterile fashion and her MICHAEL drain was removed. A timeout was performed. The sutures at the right neck were removed. There was about 30 mL of clot in the neck which was evacuated. There is no significant active bleeding noted, but there was a small amount of oozing around needle holes in 2 areas on the patch. 6-0 Prolene [id number] sutures were placed at both these areas with good hemostasis. We also used Bovie cautery and clips for any areas that had even a slow venous ooze in the soft tissues to minimize further risk of recurrent hematoma. We irrigated with copious amounts of saline. Local anesthesia was administered to the skin and subcutaneous tissue. A new MICHAEL drain was placed and secured at the skin with nylon suture in place to bulb suction. We then reapproximated the platysmal layer with 2-0 Vicryl running suture. We approximated the deep dermal layer with 4-0 interrupted Vicryl suture. We closed the skin with a running subcuticular Monocryl suture. ESTIMATED BLOOD LOSS: Approximately 5 mL acute blood loss, 30 mL clot removed. COMPLICATIONS: None PLAN: Patient will need careful monitoring of blood pressure. She required extensive antihypertensives in PACU once I identified her hypertension and stated the bedside to help treat it. We will be more aggressive with blood pressure control after this procedure. Otherwise, her plan is the same for ICU for supportive care and possible discharge tomorrow. We appreciate the opportunity to participate in the care of this patient. RANJAN JENNINGS MD Jul 10, 2020 14:04
[2020-07-10] MEDS ORDERED: hydrALAZINE 20MG/ML 1ML VIAL (J0360 PER 20MG) IV PRN (14:15)
[2020-07-10] MEDS: LABETALOL 100MG/20ML VIAL IV SCH ×5 (14:54→15:34)
[2020-07-10] MEDS: METOPROLOL 5 MG/5 ML VIAL IV SCH ×4 (14:55→16:28)
[2020-07-10] MEDS ORDERED: fentaNYL 100 MCG/2 ML INJECTION (J3010) IV PRN ×2 (15:00→16:45)
--- NOTE | 2020-07-10 15:36 | HPEPDOC ---
[facility] Medical History & Physical Date of Admission Jul 10, 2020 Date of Service: Jul 10, 2020 History and Physical CHIEF COMPLAINT: s/p R carotid endarterectomy, hematoma evacuation HISTORY OF PRESENT ILLNESS: Patient is a 64-year-old female with a history of 40+ years of smoking, greater than 70% stenosis of the right carotid artery. Patient was taken to the OR by Dr. Crowe right carotid endarterectomy patient developed a subsequent hematoma in the PACU due to hypertensive urgency. Patient was taken back to the or for hematoma evacuation in the same day. The patient will be admitted to hospitalist service to the ICU for blood pressure monitoring. Every hourly neuro checks and monitoring of hematoma reaccumulation. Patient denies any chest pain, seizures of breath, fevers, chills, nausea, vomiting, diarrhea at this time. PAST MEDICAL HISTORY: R carotid artery stenosis > 70% PAST SURGICAL HISTORY: s/p R carotid endarterectomy, hematoma evacuation . Carpal tunnel release. Tubal ligation. SOCIAL HISTORY: active smoker, 40 pack years Etoh 2-3 drinks per day FAMILY HISTORY: I reviewed with patient, and was non contributory ALLERGIES: Please see below. REVIEW OF SYSTEMS: 10 point review of systems conducted positive as noted in HPI. HOME MEDICATIONS: Please see below. PHYSICAL EXAMINATION: VITAL SIGNS: please see below General: NAD, comfortable HEENT: PERRLA, EOMI, sclerae clear Neck: Right dressing inside of endarterectomy. No fluctuant mass. Dressing clean, dry and intact. Respiratory: lungs CTAB, no wheeze, no rales, no crackles CVS: RRR, normal S1, S2, no murmurs Abdo: soft, no masses, no hepatosplenomegaly, BS+, no rebound tenderness Extremities: no edema, pulses 2+ MSK: no joint deformities, normal ROM Neuro: no focal neuro deficits, moving all 4 extremities, CN2-12 intact. Strength 5/5 in all 4 extremities. No nystagmus. Psych: calm, cooperative, AAO x 3 LABORATORY DATA: See below. MICROBIOLOGY: Please see below. ASSESSMENT: 64 yo F with a hx of smoking, HTN, underwent a R carotid endarterectomy due > 70% stenosis of the RCA, and a subsequent hematoma maral cuation. Patient is admitted to ICU under hospitalist service for strict blood pressure control and neurocheck along with surgical site observation. . PLAN: #s/p R carotid endarterectomy - POD #0 - BP > 200 sysotlic in PACU, resulted in development of R neck hematoma, was taken to OR for evacuation as tracheal shift was noted. - discussed recommendations with Dr. Jennings. - cleared to resume ASA/plavix on 07/11/20 at 0900. - strict BP control parameters: SBP > 90, < 150. HR 60-80 bpm. - BP control with PRN hydralazine, labetalol with parameters - resume home PO meds: lisinopril 10 mg. metoprolol 25 mg BID and chlorthalidone 25 mg po daily - q1h neurochecks while awake, q2h while asleep - q1h vitals #Dental infection - received ancef pre-op - will start unasyn for perioperative coverage given risk of bacterial trasmission from dental site to R endarterectomy surgical site. - monitor for fevers #Smoker - 40 pack years - smoking cessation counseling provided. DVT ppx: SCDs, TEDs. Avoid chemoppx. Vital Signs Vital Signs Date Time Temp Pulse Resp B/P (MAP) Pulse Ox O2 Delivery O2 Flow Rate FiO2 07/10/20 14:50 90 18 150/41 (77) 95 Nasal Cannula 3 07/10/20 14:02 98.0 Laboratory Data Labs 24H Laboratory Tests 2 07/10/20 06:28: Prothrombin Time 12.2, Prothromb Time International Ratio 0.89, Activated Partial Thromboplast Time 35.1, Anion Gap 8, Glomerular Filtration Rate > 60.0, Calcium Level 9.4 07/10/20 06:30: Nucleated Red Blood Cells % (auto) 0.0 CBC/BMP Laboratory Tests 07/10/20 06:28 07/10/20 06:30 Home Medications Scheduled Amlodipine Besylate (Amlodipine Besylate) 5 Mg Tablet, 1 TAB PO DAILY Aspirin (Aspirin EC) 81 Mg Tablet.dr, 81 MG PO DAILY Atorvastatin Calcium (Atorvastatin Calcium) 80 Mg Tablet, 80 MG PO DAILY Calcium Carbonate/Vitamin D3 (Calcium 500+D Tablet Chew) 1 Each Tab.chew, 1 TAB PO DAILY Clopidogrel Bisulfate (Clopidogrel) 75 Mg Tablet, 75 MG PO DAILY Garlic (Garlic) 1 Each Tablet, 1,000 MG PO DAILY Lisinopril (Lisinopril) 40 Mg Tablet, 40 MG PO DAILY Metoprolol Succinate (Metoprolol Succinate) 25 Mg Tab.er.24h, 25 MG PO DAILY Scheduled PRN Acetaminophen (Acetaminophen) 325 Mg Tablet, 325 MG PO Q4-6HP PRN for pain or fever Oxycodone/Acetaminophen (Oxycodone-Acetaminophen 5-325) 1 Each Tablet, 1 TAB PO Q6HP PRN for MODERATE PAIN (PS 5-7) Miscellaneous Medications Multivitamins (Thera M Plus Tablet) 1 Each Tablet, 1 TAB PO Allergies Coded Allergies: adhesive (Verified Allergy, Intermediate, redness, swelling, 06/26/20) A-FIB/CHADSVASC A-FIB History Current/History of A-Fib/PAF?: No Current PO Anticoag Therapy: No MINH ROSA MD Jul 10, 2020 15:36
[2020-07-10] MEDS ORDERED: MAALOX 30 ML SUSP *UDC PO PRN (15:45)
[2020-07-10] MEDS ORDERED: ACETAMINOPHEN TAB 650MG DOSE (2X325MG) PO PRN (15:45)
[2020-07-10] MEDS ORDERED: MOM 30ML SUSPENSION UDC PO PRN (15:45)
[2020-07-10] MEDS: hydrALAZINE 20MG/ML 1ML VIAL (J0360 PER 20MG) IV SCH ×3 (16:18→16:29)
[2020-07-10] MEDS ORDERED: LISI40TA4 PO (16:24)
[2020-07-10] MEDS ORDERED: METOPROLOL TART 25 MG TABLET PO ONE (16:30)
[2020-07-10] MEDS ORDERED: METOPROLOL TART 25 MG TABLET As Ordered ONE (16:35)
[2020-07-10] MEDS: AMPICILLIN SOD/SULBACTAM SOD 3 GM in D5W MINI-BAG PLUS 100 ML IV SCH ×2 (17:24→23:41)
[2020-07-10] MEDS: lisinopriL 40 MG TAB PO SCH (19:08)
[2020-07-10] MEDS: DOCUSATE SODIUM 100MG CAPSULE PO SCH (19:48)
[2020-07-10] MEDS: CHLORTHALIDONE 25 MG TAB PO SCH (23:31)
[2020-07-11] VITALS (21 sets, daily range): BP systolic 91–134; BP diastolic 41–68
[2020-07-11 05:30] LABS: HEMATOCRIT 29.5 % (36.0-47.0); MEAN CORPUSCULAR HEMOGLOBIN 31.1 pg (27.0-33.0); MEAN CORPUSCULAR HGB CONC 33.6 g/dl (32.0-36.5); MEAN CORPUSCULAR VOLUME 92.8 fl (80.0-96.0); PLATELET COUNT, AUTOMATED 166 10^3/uL (150-450); RED BLOOD COUNT 3.18 10^6/uL (4.00-5.40); WHITE BLOOD COUNT 10.9 10^3/uL (4.0-10.0)
[2020-07-11] MEDS: AMPICILLIN SOD/SULBACTAM SOD 3 GM in D5W MINI-BAG PLUS 100 ML IV SCH ×4 (05:32→23:25)
[2020-07-11] MEDS: PERCOCET 5MG/325MG TAB PO PRN ×3 (05:32→19:47)
[2020-07-11 05:38] LABS: HEMOGLOBIN 9.9 g/dl (12.0-15.5)
[2020-07-11 06:00] LABS: BLOOD UREA NITROGEN 10 MG/DL (7-18); CALCIUM LEVEL 5.5 MG/DL (8.8-10.2); CARBON DIOXIDE LEVEL 19 MEQ/L (21-32); CHLORIDE LEVEL 118 MEQ/L (98-107); CREATININE FOR GFR 0.28 MG/DL (0.55-1.30); GLOMERULAR FILTRATION RATE > 60.0 (>45); GLUCOSE, FASTING 76 MG/DL (70-100); POTASSIUM SERUM 2.4 MEQ/L (3.5-5.1); SODIUM LEVEL 146 MEQ/L (136-145)
[2020-07-11] MEDS ORDERED: KCL 10MEQ/100ML SWI (KRUN) 10 MEQ in IV 1 EA IV SCH (06:30)
[2020-07-11] MEDS ORDERED: POTASSIUM CHLORIDE 10 MEQ SR TABLET PO ONE ×2 (06:30→11:00)
[2020-07-11] MEDS ORDERED: CALCIUM GLUCONATE 1,000 MG in D5W MINI-BAG PLUS 100 ML IV ONE (06:30)
[2020-07-11] MEDS: ATORVASTATIN 20 MG TAB PO SCH (08:47)
[2020-07-11] MEDS: CLOPIDOGREL 75 MG TAB PO SCH (08:47)
[2020-07-11] MEDS: DOCUSATE SODIUM 100MG CAPSULE PO SCH ×2 (08:47→19:46)
[2020-07-11] MEDS: ASPIRIN 81 MG ENTERIC TAB PO SCH (08:48)
[2020-07-11] MEDS ORDERED: FLUBLOK(EGG FREE)(QUAD)INFLUENZA VACC 0.5ML SYRINGE 18YRS & OLDER IM ONE (09:00)
[2020-07-11] MEDS: CHLORTHALIDONE 25 MG TAB PO SCH (09:00)
[2020-07-11] MEDS: METOPROLOL SUCC *XL* 25MG TAB (TopROL *XL*) PO SCH (09:00)
[2020-07-11] MEDS: lisinopriL 40 MG TAB PO SCH (09:22)
--- NOTE | 2020-07-11 09:53 | IPNPDOC ---
Date Seen The patient was seen on 07/11/20. Progress Note SUBJECTIVE: Patient was seen and examined at bedside this morning. She is doing well, sitting upright and comfortable in bed, had breakfast without difficulties. Has no right-sided neck pain. No tracheal deviation. No trouble breathing. Overnight, developed hypokalemia and hypocalcemia. Replacements are running. Patient denies fevers, chills, chest pain, nausea, vomiting, shortness of breath. OBJECTIVE PHYSICAL EXAMINATION: VITAL SIGNS: please see below General: NAD, comfortable HEENT: PERRLA, EOMI, sclerae clear Neck: supple, normal ROM, no JVD Respiratory: lungs CTAB, no wheeze, no rales, no crackles CVS: RRR, normal S1, S2, no murmurs Abdo: soft, no masses, no hepatosplenomegaly, BS+, no rebound tenderness Extremities: no edema, pulses 2+ MSK: no joint deformities, normal ROM Neuro: no focal neuro deficits, moving all 4 extremities, CN2-12 intact. Strength 5/5 in all 4 extremities. No nystagmus. Psych: calm, cooperative, AAO x 3 LABORATORY DATA, IMAGING STUDIES, MICROBIOLOGY: Please see below. DVT prophylaxis ordered?: SCDs, TEDs. ASSESSMENT: 64 yo F with a hx of smoking, HTN, underwent a R carotid endarterectomy due > 70% stenosis of the RCA, and a subsequent hematoma evacuation. Patient is admitted to ICU under hospitalist service for strict blood pressure control and neurocheck along with surgical site observation. . PLAN: #s/p R carotid endarterectomy - POD #1 - BP > 200 sysotlic in PACU, resulted in development of R neck hematoma, was taken to OR for evacuation as tracheal shift was noted. - discussed recommendations with Dr. Jennings. - cleared to resume ASA/plavix on 07/11/20 at 0900. - strict BP control parameters: SBP > 90, < 150. HR 60-80 bpm. - BP control with PRN hydralazine, labetalol with parameters - resume home PO meds: lisinopril 40 mg. metoprolol 25 mg BID. Hold chlorthalidone given hypokalemia - Hg stable post op - patient was cleared for DC by Dr. Jennings. MICHAEL drain was removed. She is ambulating well. Will follow up in 1 week. Wound care instructions provided on DC. - incentive spirometry on DC #1st degree AV block - asymptomatic, HR 80s #nocturnal desaturation - Pulse oximetry drops when asleep, improves to 92% on RA when awake - in setting of 40+ year smoking hx - check portable CXR - R lung apical opacity - ordered CT chest w contrast to assess R lung shadow - nuctornal O2 monitoring - repeat covid test - negative by PCR - ambulate with pulse ox - albuterol on DC - close pcp follow up #Hypokalemia - K 2.4 - repleted - will hold chlor - resolved on repeat labs, advised to follow up with PCP in 3 days for a BMP #Hypocalcemia - calcium 5.5 - given 1g calcium gluconate - repeat calcium level wnl, ionized calcium wnl - advised to follow up with PCP in 3 days for calcium level check - started 500 mg calcium with vit D #Dental infection - received ancef pre-op - will start unasyn for perioperative coverage given risk of bacterial trasmission from dental site to R endarterectomy surgical site. - monitor for fevers - will give 5 days of augmentin on DC for total of 7 days therapy #Smoker - 40 pack years - smoking cessation counseling provided. DVT ppx: SCDs, TEDs. Avoid chemoppx. VS, I&O, 24H, Fishbone Vital Signs/I&O Vital Signs Date Time Temp Pulse Resp B/P (MAP) Pulse Ox O2 Delivery O2 Flow Rate FiO2 07/11/20 09:00 83 105/53 07/11/20 08:55 93 Room Air 07/11/20 08:00 98.6 22 1.0 I&O- Last 24 Hours up to 6 AM 07/11/20 06:00 Intake Total 2450 ml Output Total 2948 ml Balance -498 ml Laboratory Data 24H LABS Laboratory Tests 2 07/11/20 05:20: Nucleated Red Blood Cells % (auto) 0.0, Anion Gap 9, Glomerular Filtration Rate > 60.0, Calcium Level 5.5#*L CBC/BMP Laboratory Tests 07/11/20 05:20 MINH ROSA MD Jul 11, 2020 09:53
--- NOTE | 2020-07-11 09:58 | ECGEPIP ---
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
--- NOTE | 2020-07-11 10:40 | ECGEPIP ---
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
[2020-07-11 13:38] LABS: ALBUMIN 3.5 GM/DL (3.2-5.2); ALT/SGPT 29 U/L (12-78); BILIRUBIN,TOTAL 0.4 MG/DL (0.2-1.0); BLOOD UREA NITROGEN 16 MG/DL (7-18); CALCIUM LEVEL 9.5 MG/DL (8.8-10.2); CARBON DIOXIDE LEVEL 33 MEQ/L (21-32); CHLORIDE LEVEL 101 MEQ/L (98-107); CREATININE FOR GFR 0.77 MG/DL (0.55-1.30); GLOMERULAR FILTRATION RATE > 60.0 (>45); GLUCOSE, FASTING 115 MG/DL (70-100); SODIUM LEVEL 138 MEQ/L (136-145); TOTAL PROTEIN 6.1 GM/DL (6.4-8.2)
[2020-07-11 14:35] LABS: TROPONIN I < 0.02 NG/ML (< 0.10)
--- NOTE | 2020-07-11 15:07 | ECGEPIP ---
[facility] Test Date: 2020-07-11 Pat Name: RIVERA MORSE Department: Room: [place] [address] Gender: Female Bmet: ZARI : 1955 Requested By: MINH ROSA Order Number: [id number] Reading MD: Kimberly Nj Measurements Intervals [place] Rate: 82 P: 51 [place]: 215 QRS: 2 QRSD: 100 T: 22 QT: 367 QTc: 429 Interpretive Statements SINUS RHYTHM WITH FIRST DEGREE AV BLOCK NONSPECIFIC ST ABN APPEARS IMPROVED ON REPEAT TO 07/11/20 Electronically Signed on 07-11-2020 15:07:42 EST by Kimberly Nj
--- NOTE | 2020-07-11 15:44 | IPNPDOC ---
Date Seen The patient was seen on 07/11/20. Progress Note Patient seen and examined POD # 1 s/p R CEA and takeback for R neck hematoma after hypertensive episode in PACU. She did well postop and her BP was much better controlled with no recurrent bleeding. She tolerated a diet, speech clear, BUE and BLE motor/sensation 5/5, mild R tongue deviation (expected with complete mobilization of very low hypoglossal nerve intraop), no vision changes, denies headache. Pain controlled with percocet. R neck incision c/d/i. Minimal MICHAEL output- drain removed and redressed. Pt has not yet ambulated, but will do so soon. She has required intermittent NC O2 overnight, so I ordered an incentive spirometer and she can use this at home as well. I suspect ambulation will also help. She had hypocalcemia and hypokalemia on her labs this morning- asymptomatic, both replaced by our hospitalist, and new follow up labs improved. She said she had a lot of UO, and maybe had such a significant postop diuresis that resulted in some electrolyte imbalance. She will have repeat labs again at 4pm. EKG will be followed by the hospitalist as well. We appreciate the excellent care provided by the hospitalist. If all is stable in this regard, she should be ready for d/c home this evening. If d/c home, the following instructions can be relayed to the patient: Follow up in 1 week to check incision Regular diet Light activity as tolerated. No lifting >10lb, no strenuous exercise, no driving while taking percocet Try to keep head up as much as possible to minimize swelling. Ok for ice to right neck for comfort Try to leave steristrips intact 7 days to help incision to heal Ok to shower. Use baby shampoo. Pat steri strips dry VS, I&O, 24H, Fishbone Vital Signs/I&O Vital Signs Date Time Temp Pulse Resp B/P (MAP) Pulse Ox O2 Delivery O2 Flow Rate FiO2 07/11/20 15:00 81 117/57 88 Room Air 07/11/20 14:30 1.0 07/11/20 13:00 20 07/11/20 12:00 97.3 I&O- Last 24 Hours up to 6 AM 07/11/20 06:00 Intake Total 2450 ml Output Total 2948 ml Balance -498 ml Laboratory Data 24H LABS Laboratory Tests 2 07/11/20 05:20: Nucleated Red Blood Cells % (auto) 0.0, Anion Gap 9, Glomerular Filtration Rate > 60.0, Calcium Level 5.5#*L 07/11/20 12:53: Anion Gap 4L, Glomerular Filtration Rate > 60.0, Calcium Level 9.5#, Whole Blood Ionized Calcium 4.8, Magnesium Level 2.0, Total Bilirubin 0.4, Aspartate Amino Transf (AST/SGOT) 19, Alanine Aminotransferase (ALT/SGPT) 29, Alkaline Phosphatase 68, Troponin I < 0.02, Total Protein 6.1L, Albumin 3.5, Albumin/Globulin Ratio 1.3 CBC/BMP Laboratory Tests 07/11/20 05:20 07/11/20 12:53 RANJAN CHRISTINE MD Jul 11, 2020 15:44
[2020-07-11 15:57] LABS: BASO % 0.1 % (0.0-1.0); EOS # 0.1 10^3/uL (0.0-0.5); EOS % 0.9 % (0.0-3.0); HEMATOCRIT 30.8 % (36.0-47.0); LYMPH # 2.6 10^3/uL (1.5-5.0); LYMPH % 28.9 % (24.0-44.0); MEAN CORPUSCULAR HEMOGLOBIN 30.9 pg (27.0-33.0); MEAN CORPUSCULAR HGB CONC 32.5 g/dl (32.0-36.5); MEAN CORPUSCULAR VOLUME 95.1 fl (80.0-96.0); MONO # 1.1 10^3/uL (0.0-0.8); MONO % 11.7 % (0.0-5.0); NEUTROPHILS # 5.3 10^3/uL (1.5-8.5); NEUTROPHILS % 58.1 % (36.0-66.0); PLATELET COUNT, AUTOMATED 178 10^3/uL (150-450); RED BLOOD COUNT 3.24 10^6/uL (4.00-5.40); WHITE BLOOD COUNT 9.1 10^3/uL (4.0-10.0)
[2020-07-11 16:38] LABS: ALBUMIN 3.4 GM/DL (3.2-5.2); ALT/SGPT 29 U/L (12-78); BILIRUBIN,TOTAL 0.3 MG/DL (0.2-1.0); BLOOD UREA NITROGEN 18 MG/DL (7-18); CALCIUM LEVEL 8.9 MG/DL (8.8-10.2); CARBON DIOXIDE LEVEL 34 MEQ/L (21-32); CHLORIDE LEVEL 103 MEQ/L (98-107); CREATININE FOR GFR 0.97 MG/DL (0.55-1.30); GLOMERULAR FILTRATION RATE > 60.0 (>45); GLUCOSE, FASTING 109 MG/DL (70-100); POTASSIUM SERUM 4.5 MEQ/L (3.5-5.1); SODIUM LEVEL 139 MEQ/L (136-145); TOTAL PROTEIN 5.9 GM/DL (6.4-8.2); TROPONIN I < 0.02 NG/ML (< 0.10)
[2020-07-11] MEDS ORDERED: AMLO1TAB24 PO (16:50)
[2020-07-11] MEDS ORDERED: PERCOCET PO (16:50)
[2020-07-11] MEDS ORDERED: OYST500C PO (16:50)
--- NOTE | 2020-07-11 17:09 | DS.PDOC ---
Discharge Summary General Date of Admission Jul 10, 2020 at 06:10 Date of Discharge 07/11/20 Discharge Summary PROCEDURES PERFORMED DURING STAY: [None]. ADMITTING DIAGNOSES: s/p R carotid endarterectomy 1st degree AV block periodontal infection chronic smoker DISCHARGE DIAGNOSES: s/p R carotid endarterectomy 1st degree AV block periodontal infection hypokalemia hypocalcemia nocturnal hypoxia, transient COMPLICATIONS/CHIEF COMPLAINT: Carotid Stenosis. HISTORY OF PRESENT ILLNESS: Patient is a 64-year-old female with a history of 40+ years of smoking, greater than 70% stenosis of the right carotid artery. Patient was taken to the OR by Dr. Crowe right carotid endarterectomy patient developed a subsequent hematoma in the PACU due to hypertensive urgency. Patient was taken back to the or for hematoma evacuation in the same day. The patient will be admitted to hospitalist service to the ICU for blood pressure monitoring. Every hourly neuro checks and monitoring of hematoma reaccumulation. Patient denies any chest pain, seizures of breath, fevers, chills, nausea, vomiting, diarrhea at this time. HOSPITAL COURSE: #s/p R carotid endarterectomy - POD #1 - BP > 200 sysotlic in PACU, resulted in development of R neck hematoma, was taken to OR for evacuation as tracheal shift was noted. - discussed recommendations with Dr. Jennings. - cleared to resume ASA/plavix on 07/11/20 at 0900. - strict BP control parameters: SBP > 90, < 150. HR 60-80 bpm. - BP control with PRN hydralazine, labetalol with parameters - resume home PO meds: lisinopril 40 mg. metoprolol 25 mg BID. Hold ch lorthalidone given hypokalemia - Hg stable post op - patient was cleared for DC by Dr. Jennings. MICHAEL drain was removed. She is ambulating well. Will follow up in 1 week. Wound care instructions provided on DC. - incentive spirometry on DC #1st degree AV block - asymptomatic, HR 80s #nocturnal desaturation - Pulse oximetry drops when asleep, improves to 92% on RA when awake - in setting of 40+ year smoking hx - check portable CXR - R lung apical opacity - ordered CT chest w contrast to assess R lung shadow - no lung masses, no PE, likely atelctasis - nocturnal O2 monitoring, mild desat, patient needs sleep study. D/w Dr. Buck, [place] for outpatient wokrup - repeat covid test - negative by PCR - ambulate with pulse ox does not qualify for home O2 - incentive spirometry at home - albuterol on DC - close pcp follow up #Hypokalemia - K 2.4 - repleted - will hold chlorthalidone - resolved on repeat labs, advised to follow up with PCP in 3 days for a BMP #Hypocalcemia - calcium 5.5 - given 1g calcium gluconate - repeat calcium level wnl, ionized calcium wnl - advised to follow up with PCP in 3 days for calcium level check - started 500 mg calcium with vit D #Dental infection - received ancef pre-op - unasyn for perioperative coverage given risk of bacterial transmission from dental site to R endarterectomy surgical site. - afebrile, no WBC - will give 5 days of augmentin on DC for total of 7 days therapy #Smoker - 40 pack years - smoking cessation counseling provided. DISCHARGE MEDICATIONS: Please see below. ALLERGIES: Please see below. PHYSICAL EXAMINATION ON DISCHARGE: VITAL SIGNS: please see below General: NAD, comfortable HEENT: PERRLA, EOMI, sclerae clear Neck: supple, normal ROM, no JVD Respiratory: lungs CTAB, no wheeze, no rales, no crackles CVS: RRR, normal S1, S2, no murmurs Abdo: soft, no masses, no hepatosplenomegaly, BS+, no rebound tenderness Extremities: no edema, pulses 2+ MSK: no joint deformities, normal ROM Neuro: no focal neuro deficits, moving all 4 extremities, CN2-12 intact. Strength 5/5 in all 4 extremities. No nystagmus. Psych: calm, cooperative, AAO x 3 LABORATORY DATA: Please see below. IMAGING: CXR (07/11/20): FINDINGS: Lungs: Parenchymal opacity left lung base may represent atelectasis or infiltrate. Atelectasis right lower lobe. Pleural space: Unremarkable. No pleural effusion. No pneumothorax. Heart/Mediastinum: Unremarkable. No cardiomegaly. Diaphragm: Elevated left hemidiaphragm. Bones/joints: Unremarkable. IMPRESSION: Parenchymal opacity left lung base may represent atelectasis or infiltrate. CTA Chest (07/12/20): 1. Bibasilar parenchymal opacities likely representing atelectasis and less likely pneumonitis. No abnormality demonstrated in the right pulmonary apex. 2. There is no aortic dissection or aneurysm. 3. There are no pulmonary emboli. PROGNOSIS: good ACTIVITY: [As tolerated]. DIET: 2G sodium DISCHARGE PLAN: DC home with 1 week follow up with Dr. Jennings. F/u with PCP 3 days for BMP and Calcium check. Needs referral from PCP for sleep study. Wound care instructions provided in DC instructions. DISPOSITION: home DISCHARGE INSTRUCTIONS: Try to leave steristrips intact 7 days to help incision to heal Ok to shower. Use baby shampoo. Pat steri strips dry. Light activity as tolerated. No lifting >10lb, no strenuous exercise, no driving while taking percocet Try to keep head up as much as possible to minimize swelling. Ok for ice to right neck for comfort . Please follow-up with your primary care doctor within 3 days to check your electrolytes, mainly potassium and calcium. . Please follow-up with Dr. Jennings within 1-2 weeks . Please request referral from your primary care provider for a SLEEP STUDY as y ou may have obstructive sleep apnea . Please taking medications as prescribed. Avoid excess salt. You have been prescribed daily calcium replacement. . If you develop bleeding, chest pain, shortness of breath, seizures, nausea, fevers, or otherwise worsening of your symptoms, please call 911 or return to the nearest emergency room ITEMS TO FOLLOWUP ON ON OUTPATIENT: BMP (potassium) and calcium levels Sleep study for possible MICAELA DISCHARGE CONDITION: Stable TIME SPENT ON DISCHARGE: 35 minutes Vital Signs/I&Os Vital Signs Date Time Temp Pulse Resp B/P (MAP) Pulse Ox O2 Delivery O2 Flow Rate FiO2 07/11/20 16:20 92 Room Air 07/11/20 16:00 98.1 76 20 118/56 07/11/20 14:30 1.0 I&O- Last 24 Hours up to 6 AM 07/11/20 06:00 Intake Total 2450 ml Output Total 2948 ml Balance -498 ml Laboratory Data Labs 24H Laboratory Tests 2 07/11/20 05:20: Nucleated Red Blood Cells % (auto) 0.0, Anion Gap 9, Glomerular Filtration Rate > 60.0, Calcium Level 5.5#*L 07/11/20 12:53: Anion Gap 4L, Glomerular Filtration Rate > 60.0, Calcium Level 9.5#, Whole Blood Ionized Calcium 4.8, Magnesium Level 2.0, Total Bilirubin 0.4, Aspartate Amino Transf (AST/SGOT) 19, Alanine Aminotransferase (ALT/SGPT) 29, Alkaline Phosphatase 68, Troponin I < 0.02, Total Protein 6.1L, Albumin 3.5, Albumin/Globulin Ratio 1.3 07/11/20 15:52: Nucleated Red Blood Cells % (auto) 0.0, Anion Gap 2L, Glomerular Filtration Rate > 60.0, Calcium Level 8.9, Magnesium Level 2.0, Total Bilirubin 0.3, Aspartate Amino Transf (AST/SGOT) 19, Alanine Aminotransferase (ALT/SGPT) 29, Alkaline Phosphatase 67, Troponin I < 0.02, Total Protein 5.9L, Albumin 3.4, Albumin/Globulin Ratio 1.4, Immature Granulocyte % (Auto) 0.3, Neutrophils (%) (Auto) 58.1, Lymphocytes (%) (Auto) 28.9, Monocytes (%) (Auto) 11.7H, Eosinophils (%) (Auto) 0.9, Basophils (%) (Auto) 0.1, Neutrophils # (Auto) 5.3, Lymphocytes # (Auto) 2.6, Monocytes # (Auto) 1.1H, Eosinophils # (Auto) 0.1, Basophils # (Auto) 0.0 CBC/BMP Laboratory Tests 07/11/20 05:20 07/11/20 12:53 07/11/20 15:52 Discharge Medications Scheduled Amlodipine Besylate (Amlodipine Besylate) 5 Mg Tablet, 1 TAB PO DAILY Aspirin (Aspirin EC) 81 Mg Tablet.dr, 81 MG PO DAILY, (Reported) Atorvastatin Calcium (Atorvastatin Calcium) 80 Mg Tablet, 80 MG PO DAILY, (Reported) Calcium Carbonate/Vitamin D3 (Calcium 500+D Tablet Chew) 1 Each Tab.chew, 1 TAB PO DAILY Clopidogrel Bisulfate (Clopidogrel) 75 Mg Tablet, 75 MG PO DAILY, (Reported) Garlic (Garlic) 1 Each Tablet, 1,000 MG PO DAILY, (Reported) Lisinopril (Lisinopril) 40 Mg Tablet, 40 MG PO DAILY, (Reported) Metoprolol Succinate (Metoprolol Succinate) 25 Mg Tab.er.24h, 25 MG PO DAILY, (Reported) Scheduled PRN Acetaminophen (Acetaminophen) 325 Mg Tablet, 325 MG PO Q4-6HP PRN for pain or fever Oxycodone/Acetaminophen (Oxycodone-Acetaminophen 5-325) 1 Each Tablet, 1 TAB PO Q6HP PRN for MODERATE PAIN (PS 5-7) Miscellaneous Medications Multivitamins (Thera M Plus Tablet) 1 Each Tablet, 1 TAB PO, (Reported) Allergies Coded Allergies: adhesive (Verified Allergy, Intermediate, redness, swelling, 06/26/20) MINH ROSA MD Jul 11, 2020 17:09
--- NOTE | 2020-07-11 20:18 | REPVR ---
PROCEDURE INFORMATION: Exam: XR Chest, 1 View Exam date and time: 07/11/2020 5:29 PM Age: 64 years old Clinical indication: Other: Hypoxia TECHNIQUE: Imaging protocol: XR of the chest Views: 1 view. COMPARISON: No relevant prior studies available. FINDINGS: Lungs: Parenchymal opacity left lung base may represent atelectasis or infiltrate. Atelectasis right lower lobe. Pleural space: Unremarkable. No pleural effusion. No pneumothorax. Heart/Mediastinum: Unremarkable. No cardiomegaly. Diaphragm: Elevated left hemidiaphragm. Bones/joints: Unremarkable. IMPRESSION: Parenchymal opacity left lung base may represent atelectasis or infiltrate. Electronically signed by: John Beverly On 07/11/2020 20:18:09 PM
[2020-07-11] MEDS ORDERED: ISOVUE-370 76% 100ML VIAL As Ordered ONE (21:08)
--- NOTE | 2020-07-11 22:06 | REPVR ---
PROCEDURE INFORMATION: Exam: CT Angiography Chest With Contrast Exam date and time: 07/11/2020 9:37 PM Age: 64 years old Clinical indication: Other: R lung apical [place], desat. R/O pe TECHNIQUE: Imaging protocol: Computed tomographic angiography of the chest with intravenous contrast. 3D rendering (Not supervised by radiologist): MIP and/or 3D reconstructed images were created by the technologist. Radiation optimization: All CT scans at this facility use at least one of these dose optimization techniques: automated exposure control; mA and/or kV adjustment per patient size (includes targeted exams where dose is matched to clinical indication); or iterative reconstruction. Contrast material: ISOVUE 370; Contrast volume: 75 ml; Contrast route: INTRAVENOUS (IV); COMPARISON: CR PORTABLE CHEST X-RAY 07/11/2020 5:19 PM FINDINGS: Pulmonary arteries: There are no pulmonary emboli. Aorta: There is no aortic dissection or aneurysm. Lungs: Left lower lobe infiltrate with air bronchograms. Finding may represent atelectasis although infectious etiology to be excluded clinically. Bibasilar parenchymal opacities likely representing atelectasis and less likely pneumonitis. No abnormalities demonstrated in the right pulmonary apex. Pleural space: Unremarkable. No pneumothorax. No pleural effusion. Heart: Unremarkable. No cardiomegaly. No pericardial effusion. Lymph nodes: Unremarkable. No enlarged lymph nodes. Bones/joints: The spine demonstrates mild degenerative changes. Soft tissues: Unremarkable. IMPRESSION: 1. Bibasilar parenchymal opacities likely representing atelectasis and less likely pneumonitis. No abnormality demonstrated in the right pulmonary apex. 2. There is no aortic dissection or aneurysm. 3. There are no pulmonary emboli. Electronically signed by: John Beverly On 07/11/2020 22:05:42 PM
[2020-07-12 04:00] VITALS: BP 145/65
[2020-07-12 04:38] LABS: BASO % 0.1 % (0.0-1.0); EOS # 0.1 10^3/uL (0.0-0.5); EOS % 1.1 % (0.0-3.0); HEMATOCRIT 30.2 % (36.0-47.0); HEMOGLOBIN 9.7 g/dl (12.0-15.5); LYMPH % 23.3 % (24.0-44.0); MEAN CORPUSCULAR HEMOGLOBIN 30.2 pg (27.0-33.0); MEAN CORPUSCULAR HGB CONC 32.1 g/dl (32.0-36.5); MEAN CORPUSCULAR VOLUME 94.1 fl (80.0-96.0); MONO # 0.8 10^3/uL (0.0-0.8); MONO % 9.9 % (0.0-5.0); NEUTROPHILS # 5.5 10^3/uL (1.5-8.5); NEUTROPHILS % 65.2 % (36.0-66.0); PLATELET COUNT, AUTOMATED 171 10^3/uL (150-450); RED BLOOD COUNT 3.21 10^6/uL (4.00-5.40); WHITE BLOOD COUNT 8.5 10^3/uL (4.0-10.0)
[2020-07-12 05:00] LABS: ALBUMIN 3.3 GM/DL (3.2-5.2); ALT/SGPT 27 U/L (12-78); BILIRUBIN,TOTAL 0.4 MG/DL (0.2-1.0); BLOOD UREA NITROGEN 13 MG/DL (7-18); CALCIUM LEVEL 8.8 MG/DL (8.8-10.2); CARBON DIOXIDE LEVEL 31 MEQ/L (21-32); CHLORIDE LEVEL 103 MEQ/L (98-107); CREATININE FOR GFR 0.66 MG/DL (0.55-1.30); GLOMERULAR FILTRATION RATE > 60.0 (>45); GLUCOSE, FASTING 102 MG/DL (70-100); POTASSIUM SERUM 4.2 MEQ/L (3.5-5.1); SODIUM LEVEL 140 MEQ/L (136-145); TOTAL PROTEIN 5.8 GM/DL (6.4-8.2)
[2020-07-12] MEDS: AMPICILLIN SOD/SULBACTAM SOD 3 GM in D5W MINI-BAG PLUS 100 ML IV SCH ×2 (05:23→10:28)
[2020-07-12 08:00] VITALS: BP 142/62
[2020-07-12 08:07] VITALS: BP 142/62
[2020-07-12] MEDS: lisinopriL 40 MG TAB PO SCH (08:07)
[2020-07-12] MEDS: CHLORTHALIDONE 25 MG TAB PO SCH (08:07)
[2020-07-12] MEDS: CLOPIDOGREL 75 MG TAB PO SCH (08:07)
[2020-07-12] MEDS: DOCUSATE SODIUM 100MG CAPSULE PO SCH (08:07)
[2020-07-12] MEDS: ATORVASTATIN 20 MG TAB PO SCH (08:07)
[2020-07-12] MEDS: METOPROLOL SUCC *XL* 25MG TAB (TopROL *XL*) PO SCH (08:07)
[2020-07-12] MEDS: ASPIRIN 81 MG ENTERIC TAB PO SCH (08:07)
--- NOTE | 2020-07-12 13:43 | NOCOX ---
NOCTURNAL OXIMETRY STUDY DATE: 07/12/2020 Study was performed on room air. The total valid sampling time was approximately 3 hours and 7 minutes. The patient's O2 sat ranged from a high of 99% to a low of 77%. The total time spent with an O2 sat less than 88% was only 58 seconds. Graphically, the patient's SpO2 waveform showed minimal variability overnight. There was one episode of desaturation later in the morning, although that may have been due to technical issues with the oximeter probe. IMPRESSION: Patient does not qualify for nocturnal oxygen supplementation. There did not appear to be significant O2 sat variability overnight, except for one brief episode later in the morning. If there is still clinical suspicion for sleep disordered breathing can consider more formal sleep testing. Likely normal nocturnal oximetry study.
[2020-07-13 10:59] LABS: PTH INTACT 7.9 PG/ML (18.5-88.0)
== END 2020-07-12 11:30 | disposition home or self-care (01) | DRG 24 ==
LOC: M OR 06:10 → M PCU 15:40
PROVIDERS: ADMIT Surgery Vascular Surgery; ATTEND Family Medicine
PROC: 03CK0ZZ Extirpation of Matter from Right Internal Carotid Artery, Open Approach (ICD-10-PCS; 2020-07-10)
PROC: 03CM0ZZ Extirpation of Matter from Right External Carotid Artery, Open Approach (ICD-10-PCS; 2020-07-10)
PROC: 03UK0JZ Supplement Right Internal Carotid Artery with Synthetic Substitute, Open Approach (ICD-10-PCS; 2020-07-10)
PROC: 0JC40ZZ Extirpation of Matter from Right Neck Subcutaneous Tissue and Fascia, Open Approach (ICD-10-PCS; 2020-07-10)
PROC: 03CH0ZZ Extirpation of Matter from Right Common Carotid Artery, Open Approach (ICD-10-PCS; principal; 2020-07-10 07:30)
DX: I65.21 Occlusion and stenosis of right carotid artery (principal); G47.34 Idiopathic sleep related nonobstructive alveolar hypoventilation; E83.51 Hypocalcemia; I10 Essential (primary) hypertension; E11.9 Type 2 diabetes mellitus without complications; E78.5 Hyperlipidemia, unspecified; F17.210 Nicotine dependence, cigarettes, uncomplicated; L76.32 Postprocedural hematoma of skin and subcutaneous tissue following other procedure; I44.0 Atrioventricular block, first degree; E87.6 Hypokalemia; K04.7 Periapical abscess without sinus; Z11.52 Encounter for screening for COVID-19; Z79.899 Other long term (current) drug therapy; Z79.82 Long term (current) use of aspirin; Z91.048 Other nonmedicinal substance allergy status; Z79.02 Long term (current) use of antithrombotics/antiplatelets

== ENCOUNTER → 2020-07-17 | Outpatient (REF) | payer BC ==
[~2020-07-17] MED LIST changes: +AMLO1TAB24 PO; -LISI10TA22 PO; +LISI10TA4 PO; +LISI40TA PO; -LR 1,000 ML IV ONE; +OYST500C PO; +PERCOCET PO; -ceFAZolin SOD 2 GM in IV 1 EA IV ONE
[2020-07-17 13:53] LABS: BLOOD UREA NITROGEN 13 MG/DL (7-18); CALCIUM LEVEL 10.5 MG/DL (8.8-10.2); CARBON DIOXIDE LEVEL 30 MEQ/L (21-32); CHLORIDE LEVEL 100 MEQ/L (98-107); CREATININE FOR GFR 0.86 MG/DL (0.55-1.30); GLOMERULAR FILTRATION RATE > 60.0 (>45); GLUCOSE, FASTING 105 MG/DL (70-100); SODIUM LEVEL 139 MEQ/L (136-145)
== END ==
LOC: M SFHCPLAZ 09:22
PROVIDERS: ATTEND Family Medicine
DX: E87.6 Hypokalemia (principal)

== ENCOUNTER → 2020-08-27 | Outpatient (CLI) | payer BC ==
[~2020-08-27] MED LIST changes: +LISI10TA22 PO; -LISI10TA4 PO; -LISI40TA PO; +LISI40TA4 PO
--- NOTE | 2020-08-27 10:34 | REP ---
INDICATION: CAROTID JENNIFER STENOSIS S/P RT CEA COMPARISON: 04/30/2020. TECHNIQUE: Real-time ultrasound evaluation and duplex Doppler interrogation of the extracranial carotid vasculature is performed. FINDINGS: There is mild plaquing and narrowing in both carotid bulbs extending into the internal and external carotid arteries. Luminal narrowing is less than 50%. There is no evidence of hemodynamically significant stenosis of either internal carotid artery. Normal flow velocities are seen. The vertebral arteries demonstrate normal direction of flow. RIGHT LEFT Peak systolic velocity ICA 106.9 cm/s 123.2 cm/s End diastolic velocity ICA 39.1 cm/s 32.0 cm/s Peak systolic velocity CCA 80.7 cm/s 88.9cm/s Peak systolic velocity ECA 110.3 cm/s 59.1 cm/s ICA/CCA ratio 1.32 1.39 IMPRESSION: Bilateral luminal narrowing of the internal carotid arteries less than 50%. No evidence of hemodynamically significant stenosis. <Electronically signed by Kurtis Melo > 08/27/20 1035
== END ==
LOC: M RAD 09:44
PROVIDERS: ATTEND Surgery Vascular Surgery
DX: I65.23 Occlusion and stenosis of bilateral carotid arteries (principal)

== ENCOUNTER → 2021-01-04 | Outpatient (CLI) | payer MEDICARE, BC ==
--- NOTE | 2021-01-12 15:16 | REP ---
INDICATION: PAIN. COMPARISON: Comparison right hand radiographs December 15, 2018.. TECHNIQUE: Four views of the right wrist are provided. FINDINGS: There is diffuse osteopenia mild in degree. Mild osteoarthritic spurring is seen at the navicular multangular and at the 1st carpometacarpal articulation. Bones, joints, and soft tissues are otherwise unremarkable. No acute bony abnormality is seen. IMPRESSION: Mild osteoarthritic changes as above. <Electronically signed by Ham Martinez > 01/12/21 [id number]
== END ==
LOC: M PLAIMG 12:54
PROVIDERS: ATTEND Student in an Organized Health Care Education/Training Program
DX: M85.841 Other specified disorders of bone density and structure, right hand (principal); M25.531 Pain in right wrist

== ENCOUNTER → 2021-01-04 | Outpatient (CLI) | payer MEDICARE, BC ==
[2021-01-04 15:40] LABS: C REACTIVE PROTEIN QUANTITATIV < 0.30 MG/DL (0.00-0.30); RHEUMATOID FACTOR QUANT < 10.0 IU/ML (<15.0)
== END ==
LOC: M PLALAB 13:09
PROVIDERS: ATTEND Student in an Organized Health Care Education/Training Program
DX: M25.531 Pain in right wrist (principal)

== ENCOUNTER → 2021-01-29 | Outpatient (CLI) | payer MEDICARE | LOC: M PLALAB 08:55 | PROVIDERS: ATTEND Orthopaedic Surgery | DX: M19.041 Primary osteoarthritis, right hand (principal) ==

== ENCOUNTER → 2021-01-29 | Outpatient (CLI) | payer MEDICARE ==
--- NOTE | 2021-01-29 09:34 | REPMRS ---
Patient History The patient states she has not had a clinical breast exam in over a year. Patient is postmenopausal and had first child at age 38. Family history of prostate cancer at age 50 or over in paternal uncle. Patient states no breast complaints today. Patient has signed MRS History Sheet. Digital Woman Screen Mammo: January 29, 2021 - Exam #: [id number] Bilateral CC and MLO view(s) were taken. Technologist: Zeina Navarrete, Technologist No prior studies available for comparison. FINDINGS: There are scattered fibroglandular densities. The Volpara volumetric breast density category is: B. There is no evidence of dominant mass, architectural distortion, or grouped microcalcification typical of malignancy. 3-D tomosynthesis shows no additional findings. Assessment: BI-RADS/ACR category 1 mammogram. Negative Mammogram. Recommendation Routine screening mammogram of both breasts in 1 year (for women over age 40). This patient's [facility] Lifetime Breast Cancer RIsk is estimated at 9.1 %. This mammogram was interpreted with the aid of an FDA-approved computer-aided dectection system. Electronically Signed By: Ham Martinez MD 01/29/21 0934
== END ==
LOC: M WHC 08:14
PROVIDERS: ATTEND Student in an Organized Health Care Education/Training Program
DX: Z12.31 Encounter for screening mammogram for malignant neoplasm of breast (principal)

== ENCOUNTER → 2021-03-02 | Outpatient (CLI) | payer MEDICARE ==
--- NOTE | 2021-03-02 10:59 | REP ---
INDICATION: OCCLUSION / STENOSIS OF JENNIFER CAROTID ARTERIES COMPARISON: 08/27/2020. TECHNIQUE: Real-time ultrasound evaluation and duplex Doppler interrogation of the extracranial carotid vasculature is performed. FINDINGS: There is very mild plaquing of the right carotid bulb and internal carotid artery. There is moderate scattered plaquing of the left carotid bulbs extending into the internal and external carotid arteries. There is elevated peak systolic velocity in the left internal carotid artery suggesting stenosis 50-79%. There is normal direction of flow in both vertebral arteries. RIGHT LEFT Peak systolic velocity ICA 86.6 cm/s 174.8 cm/s End diastolic velocity ICA 34.4 cm/s 54.5 cm/s Peak systolic velocity CCA 91.5 cm/s 87.4cm/s Peak systolic velocity ECA 125.5 cm/s 133.3 cm/s ICA/CCA ratio 0.95 2.0 IMPRESSION: There are findings suggesting stenosis of the left internal carotid artery 50-79%, as discussed above. <Electronically signed by Kurtis Melo > 03/02/21 [id number]
== END ==
LOC: M RAD 10:03
PROVIDERS: ATTEND Surgery Vascular Surgery
DX: I65.23 Occlusion and stenosis of bilateral carotid arteries (principal)

== ENCOUNTER → 2021-03-03 | Outpatient (CLI) | payer MEDICARE ==
--- NOTE | 2021-03-03 10:46 | REP ---
INDICATION: SCREENING MALIG NEOPLASM /ABNORMAL BLOOD-GAS LEVEL. COMPARISON: 07/11/2020 CT angio chest TECHNIQUE: Axial noncontrast images from the thoracic inlet to the upper abdomen using low-dose lung screening technique (LDCT). As per the protocol only lung window images were sent to the read station for interpretation FINDINGS: There are no abnormal nodules, masses, or opacities. There is evidence of cylindrical bronchiectasis. Grossly, the mediastinum and pulmonary abdelrahman are unchanged. Grossly, the imaged upper abdomen and imaged osseous structures are unchanged. IMPRESSION: Lung rads category 1 low-dose screening CT examination of the lungs. Follow-up as per the revised Fleischner society criteria. <Electronically signed by Carlitos Jones > 03/03/21 [id number]
--- NOTE | 2021-03-03 11:38 | PFTRPT ---
Site: [facility], [address] [place], [address] ID: [id number] Name: RIVERA MORSE Visit Date: 03/03/2021 Second ID: [id number] Reviewing Doctor: Prakash Marroquin MD Wood Carving Lathe Operator: Gaby Bonilla RRT Age: 65 : 1955 Sex: Female Race: Height: 65.00 Inches Weight: 163.00 Lbs BSA: 1.81 Order IDs: [id number] Requested Test(s): <RESP-PFT.PFT B/A> Diagnosis: R79.81 of albuterol for post bronchodilator. Review Status: Not Reviewed Pre-Bronch Post-Bronch Pred Actual %Pred Actual %Chng SPIROMETRY FVC (L) 3.27 2.39 72 2.43 1 FEV1 (L) 2.50 2.04 81 2.10 2 FEV1/FVC (%) 77 86 111 87 1 FEF 25% (L/sec) 4.96 4.88 98 3.68 -24 FEF 50% (L/sec) 3.47 4.70 135 3.14 -33 FEF 75% (L/sec) 1.09 0.94 85 1.43 52 FEF 25-75% (L/sec) 2.17 2.94 135 2.79 -5 FEF Max (L/sec) 6.13 6.10 99 5.49 -10 FIVC (L) 1.45 1.43 -1 FIF 50% (L/sec) 3.41 3.55 103 2.40 -32 FIF Max (L/sec) 3.55 2.61 -26 MVV (L/min) 90 100 111 Expiratory Time (sec) 6.98 6.84 -2 Back Extrap Vol (L) 0.14 0.07 -52 Time To FEFmax (sec) 0.162 0.081 -50 LUNG VOLUMES SVC (L) 3.05 2.35 77 IC (L) 2.24 1.35 60 ERV (L) 0.81 1.01 124 TGV (L) 2.96 2.77 93 RV (Pleth) (L) 2.15 1.77 82 TLC (Pleth) (L) 5.20 4.12 79 RV/TLC (Pleth) (%) 42 43 102 DIFFUSION DLCOunc (ml/min/mmHg) 21.44 15.65 73 DL/VA (ml/min/mmHg/L) 4.12 5.08 123 VA (L) 5.20 3.08 59 BHT (sec) 10.66 IVC (L) 1.34 TLC (SB) (L) 3.23 AIRWAYS RESISTANCE Raw (cmH2O/L/s) 1.86 0.88 47 Gaw (L/s/cmH2O) 1.03 1.15 111 sRaw (cmH2O*s) 4.76 2.63 55 sGaw (1/cmH2O*s) 0.20 0.38 191
== END ==
LOC: M CARPUL 10:02
PROVIDERS: ATTEND Student in an Organized Health Care Education/Training Program
DX: R79.81 Abnormal blood-gas level (principal); Z12.2 Encounter for screening for malignant neoplasm of respiratory organs

== ENCOUNTER → 2022-08-12 | Outpatient (CLI) | payer MEDICARE | LOC: M RAD 07:34 | PROVIDERS: ATTEND Student in an Organized Health Care Education/Training Program | DX: Z87.891 Personal history of nicotine dependence (principal) ==

== ENCOUNTER → 2023-06-07 | Outpatient (CLI) | payer MEDICARE | LOC: M PLAIMG 13:34 | PROVIDERS: ATTEND Student in an Organized Health Care Education/Training Program | DX: M79.18 Myalgia, other site (principal) ==

== ENCOUNTER → 2023-06-07 | Outpatient (CLI) | payer MEDICARE | LOC: M WHC 12:48 | PROVIDERS: ATTEND Student in an Organized Health Care Education/Training Program | DX: Z12.31 Encounter for screening mammogram for malignant neoplasm of breast (principal) ==

== ENCOUNTER → 2023-06-20 | Outpatient (REF) | payer MEDICARE | LOC: M SFHCPLAZ 13:27 | PROVIDERS: ATTEND Student in an Organized Health Care Education/Training Program | DX: D04.71 Carcinoma in situ of skin of right lower limb, including hip (principal); L82.1 Other seborrheic keratosis ==

== ENCOUNTER 2023-07-25 06:54 | Day surgery (SDC) | payer MEDICARE ==
[~2023-07-25] VITALS: Ht 165.1 cm; Wt 79.0 kg
[~2023-07-25 06:54] MED LIST changes: +GARL500C2 PO; +MULTTAB86 PO
[2023-07-25] MEDS: NS 1,000 ML IV ONE (07:22)
[2023-07-25] MEDS ORDERED: propofoL 200 MG/20 ML VIAL As Ordered ONE (08:23)
[2023-07-25] MEDS ORDERED: LIDOCAINE 2% 100MG/5ML SDV (FOR ANES.) As Ordered ONE (08:36)
[2023-07-25 08:57] VITALS: BP 154/66; O2SAT 98
== END 2023-07-25 09:08 | disposition home or self-care (01) ==
LOC: M OPP 06:54
PROVIDERS: ATTEND Internal Medicine Gastroenterology
DX: Z12.11 Encounter for screening for malignant neoplasm of colon (principal); D12.5 Benign neoplasm of sigmoid colon; K63.5 Polyp of colon; K64.8 Other hemorrhoids; K57.30 Diverticulosis of large intestine without perforation or abscess without bleeding; F17.200 Nicotine dependence, unspecified, uncomplicated; Z79.02 Long term (current) use of antithrombotics/antiplatelets; Z79.1 Long term (current) use of non-steroidal anti-inflammatories (NSAID); Z79.82 Long term (current) use of aspirin; Z79.899 Other long term (current) drug therapy; Z91.048 Other nonmedicinal substance allergy status

== ENCOUNTER → 2023-08-22 | Outpatient (REF) | payer MEDICARE | LOC: M SFHCDERM 17:55 | PROVIDERS: ATTEND Physician Assistant | DX: L85.9 Epidermal thickening, unspecified (principal) ==

== ENCOUNTER → 2024-01-05 | Outpatient (CLI) | payer MEDICARE ==
[~2024-01-05] MED LIST changes: -GARL500C2 PO; +GARL500C6 PO
== END ==
LOC: M RAD 16:35
PROVIDERS: ATTEND Family Medicine
DX: Z12.2 Encounter for screening for malignant neoplasm of respiratory organs (principal); Z87.891 Personal history of nicotine dependence

== ENCOUNTER → 2024-10-23 | Outpatient (CLI) | payer MEDICARE ==
[2024-10-23 10:22] LABS: BLOOD UREA NITROGEN 12 MG/DL (9-23); CALCIUM LEVEL 9.6 MG/DL (8.3-10.6); CARBON DIOXIDE LEVEL 31 MMOL/L (20-31); CHLORIDE LEVEL 106 MMOL/L (98-107); CREATININE FOR GFR 0.72 MG/DL (0.55-1.30); GLOMERULAR FILTRATION RATE > 90.0 (>45); GLUCOSE, FASTING 103 MG/DL (74-106); POTASSIUM SERUM 4.1 MMOL/L (3.5-5.1); SODIUM LEVEL 144 MMOL/L (136-145)
[2024-10-23 10:26] LABS: PROLACTIN 5.83 NG/ML
[2024-10-23 10:45] LABS: THYROID STIMULATING HORMONE 2.207 uIU/ML (0.55-4.78)
== END ==
LOC: M LAB 09:08
PROVIDERS: ATTEND Physician Assistant
DX: L90.5 Scar conditions and fibrosis of skin (principal); L85.9 Epidermal thickening, unspecified; L68.0 Hirsutism

== ENCOUNTER → 2025-04-17 | Outpatient (CLI) | payer MEDICARE ==
[~2025-04-17] MED LIST changes: +LISI40TA10 PO; -LISI40TA4 PO
== END ==
LOC: M WHC 08:33
PROVIDERS: ATTEND Family Medicine
DX: Z12.31 Encounter for screening mammogram for malignant neoplasm of breast (principal); Z53.9 Procedure and treatment not carried out, unspecified reason

== ENCOUNTER → 2025-05-20 | Outpatient (CLI) | payer MEDICARE | LOC: M RAD 13:01 | PROVIDERS: ATTEND Family Medicine | DX: F17.210 Nicotine dependence, cigarettes, uncomplicated (principal) ==